=== PATIENT | female | born 1960 | race Caucasian/White ===

== ENCOUNTER 2022-04-21 10:47 | Outpatient (REF) | payer OTHER, SELFPAY | END 2022-04-21 10:48 | disposition home or self-care (01) | LOC: HO.XRAY 10:47 | PROVIDERS: PCP Internal Medicine; Visit Provider Internal Medicine | DX: K21.9 Gastro-esophageal reflux disease without esophagitis (principal); R10.13 Epigastric pain | CPT/HCPCS: 74220 ==

== ENCOUNTER 2022-05-25 07:44 | Outpatient (REF) | payer OTHER, SELFPAY ==
--- NOTE | ~2022-05-25 | US_ITS ---
EXAMINATION: US ABDOMEN COMPLETE CLINICAL INFORMATION: Abdominal discomfort. COMPARISON: None TECHNIQUE: Real-time imaging of the abdominal viscera. FINDINGS: PANCREAS: Normal. ABDOMINAL AORTA: The proximal, mid, and distal segments are normal in caliber. INFERIOR VENA CAVA: Visualized portions are normal. LIVER: The liver is normal in size. The liver contour is normal. There is diffuse increased liver parenchymal echogenicity, consistent with hepatic steatosis. No focal hepatic lesion. There is no intrahepatic biliary duct dilatation seen. GALLBLADDER: Normal. The gallbladder is physiologically distended without evidence of stones, sludge, polyps, wall thickening or pericholecystic fluid. COMMON BILE DUCT: Normal in caliber measuring 0.7 cm in diameter. RIGHT KIDNEY: Normal. No hydronephrosis. No renal calculi or focal parenchymal lesions. The kidney measures 10.5 cm in maximum dimension. LEFT KIDNEY: Nonobstructing 3 mm stone. No hydronephrosis or focal parenchymal lesions. The kidney measures 10.2 cm in maximum dimension. SPLEEN: Normal. The spleen measures 8.3 cm in maximum dimension. FREE FLUID: None. US/US abdomen complete IMPRESSION: 1. Hepatic steatosis. 2. Nonobstructing left renal nephrolithiasis.
== END 2022-05-25 07:45 | disposition home or self-care (01) ==
LOC: HO.US 07:44
PROVIDERS: Visit Provider Internal Medicine
DX: R10.84 Generalized abdominal pain (principal)
CPT/HCPCS: 76700

== ENCOUNTER 2022-06-05 10:14 | Day surgery (SDC) | payer OTHER, SELFPAY ==
--- NOTE | 2022-06-02 13:56 | P.CONAN_ITS ---
Documented by User: Marcella Munguia NP 06/02/22 13:58 HPI - Anesthesia Eval Consult details Narrative: 62yo F for Upper Endoscopy with Balloon Dilitation and Colonoscopy [facility] Past Medical History Medical History (Updated 06/02/22 @ 13:57 by Marcella Munguia NP) GERD (gastroesophageal reflux disease) Hiatal hernia HLD (hyperlipidemia) Hypothyroid IBS (irritable bowel syndrome) Social History Social History Advance Directives: No Advance Directives Information Provided: Yes Meds Allergies Allergy/AdvReac Type Severity Reaction Status Date / Time No Known Allergies Allergy Verified 06/02/22 13:58 Home Medications Medication Instructions Recorded Confirmed Last Taken Type dicyclomine 20 mg tablet 1 tab PO TID 06/02/22 06/02/22 Unknown History levothyroxine 75 mcg tablet 1 tab PO DAILY 06/02/22 06/02/22 Unknown History omeprazole 40 mg capsule,delayed 1 cap PO DAILY 06/02/22 06/02/22 Unknown History release pravastatin 80 mg tablet 1 tab PO DAILY 06/02/22 06/02/22 Unknown History Exam Exam Date and Time: June 02, 2022 1356 Assessment and Plan Assessment Anesthesia Assessment: Chart Reviewed Documented by User: Cristhian Sauceda MD 06/05/22 11:12 [facility] Past Medical History Medical History (Updated 06/02/22 @ 13:57 by Marcella Munguia NP) GERD (gastroesophageal reflux disease) Hiatal hernia HLD (hyperlipidemia) Hypothyroid IBS (irritable bowel syndrome) Family History Family history of problems with anesthesia: No Surgical History History of Problems with Anesthesia: No Social History Social History Advance Directives: No Advance Directives Information Provided: Yes Meds Allergies Allergy/AdvReac Type Severity Reaction Status Date / Time No Known Allergies Allergy Verified 06/02/22 13:58 Home Medications Medication Instructions Recorded Confirmed Last Taken Type dicyclomine 20 mg tablet 1 tab PO TID 06/02/22 06/02/22 Unknown History levothyroxine 75 mcg tablet 1 tab PO DAILY 06/02/22 06/02/22 Unknown History omeprazole 40 mg capsule,delayed 1 cap PO DAILY 06/02/22 06/02/22 Unknown History release pravastatin 80 mg tablet 1 tab PO DAILY 06/02/22 06/02/22 Unknown History Exam Airway Mallampati Class: II TM Dist: >3cm Neck ROM: Full Assessment and Plan Assessment Anesthesia Assessment: Anesthesia Plan Discussed Final Anesthetic Review Family History of Problems with Anesthesia: No History of Problems with Anesthesia: No NPO: Yes ASA Class: II Final Preanesthetic Review: No Changes in Pt Med Stat, Meds/Allgs Chart Reviewed, Consent Obtained/Reviewed and Anes Risks/Benef Reviewed Patient Risk: Low Procedure Risk: Low Anesthetic Plan Anesthetic Plan: MAC: Disposition: Standard PACU
[2022-06-05 11:12] VITALS: BP 134/70; PULSE 73; RESP 18; TEMP 36.3; O2SAT 98
[2022-06-05 11:16] VITALS: BMI 25.6
[2022-06-05] MEDS: Lactated Ringers 1,000 ML 100 ML IVCONT (11:24)
[2022-06-05 12:50] VITALS: BP 86/57; PULSE 69; RESP 16; TEMP 36.1; O2SAT 98
--- NOTE | 2022-06-05 13:00 | P.BOP_ITS ---
Brief Operative Note Date of Service: 06/05/22 Pre-op diagnosis: GERD, Diarrhea Post-op diagnosis: other (Hiatal hernia, Gastritis, R/O microscopic colitis) Procedure: EGD with biopsies, Colonoscopy to the cecum and TI with biopsies Surgeon: Chris Benoit Anesthesia: MAC Was an Asp Net Mvc Developer used for this Procedure?: No Estimated blood loss (mL): 3.0 Pathology: other (A. Descending duodenum B. Hiatal hernia C. EG Junction at 30cm D. Ascending colon E. Descending colon) Condition: stable Disposition: PACU
[2022-06-05 13:05] VITALS: BP 106/64; PULSE 53; RESP 16; O2SAT 98
--- NOTE | 2022-06-05 23:15 | OP_ITS ---
SURGEON: Chris Benoit MD INDICATIONS: The patient presents for evaluation of chronic gastroesophageal reflux, abdominal discomfort, irregular bowel movements, and colorectal cancer screening. Full consent has been obtained from her for this, including risks of bleeding and perforation. PREOPERATIVE DIAGNOSIS: POSTOPERATIVE DIAGNOSIS: PROCEDURE PERFORMED: Esophagogastroduodenoscopy with biopsies and colonoscopy to the cecum and terminal ileum with biopsies. ESTIMATED BLOOD LOSS: COMPLICATIONS: ANESTHESIA: Monitored anesthesia care. ASSISTANTS: SPECIMENS: PREOPERATIVE DIAGNOSES: Gastroesophageal reflux, abdominal discomfort, irregular bowel movements, colorectal cancer screening. POSTOPERATIVE DIAGNOSES: Gastroesophageal reflux, abdominal discomfort, irregular bowel movements, colorectal cancer screening, rule out celiac disease, rule out gastritis, hiatal hernia, rule out microscopic colitis, diverticulosis, and internal hemorrhoids. DESCRIPTION OF PROCEDURE: The patient was placed in the left lateral decubitus position. The Olympus video gastroscope was passed in the posterior oropharynx and upper esophagus under direct vision. The scope was passed slowly to the distal esophagus. The gastroesophageal junction appeared at 30 cm. There was some slight irregularity consistent with chronic reflux and possibly small areas of Moctezuma's mucosa. There was no esophagitis. There was no sign of any stricture. The scope easily entered into the stomach. There was a moderate-sized hiatal hernia with associated gastritis. The scope was advanced to the pylorus and the duodenum was cannulated to the descending portion. The duodenum including the bulb appeared normal without mass or ulceration. Biopsies were obtained from the 2nd and 3rd portions of duodenum. The scope was withdrawn back into the stomach. The gastric antrum and body appeared normal with good peristalsis. The scope was retroflexed visualizing the proximal stomach carefully which appeared normal, without any sign of mass or ulceration. The scope was straightened and withdrawn back into the hiatal hernia. Biopsies were obtained from the hiatal hernia mucosa. The scope was withdrawn back into the esophagus. Biopsies were obtained at the EG junction at 30 cm. Proximal to this, the esophageal mucosa appeared normal. I did not perform any balloon dilation of the gastroesophageal junction given its gross appearance and the fact that she reports that she has not been having any trouble swallowing recently. The scope was withdrawn from the patient. She was turned around for the colonoscopy. The digital rectal exam revealed no abnormalities. The Olympus video pediatric colonoscope was entered into the rectum and advanced easily to the cecum. Once in the cecum, I did identify normal-appearing cecal pouch with appendiceal orifice and a normal-appearing ileocecal valve. The terminal ileum was cannulated and appeared normal. The scope was withdrawn back in the colon. The entire cecum and ileocecal valve appeared normal. The scope was then slowly withdrawn assessing all mucosal surfaces carefully. Preparation was excellent. I did not visualize any sign of polyps, colitis, nor angiodysplasia. Random biopsies were obtained in the ascending and descending colon. There was a mild amount of sigmoid diverticulosis. In the rectum, the scope was retroflexed visualizing small internal hemorrhoids, but no other pathology. The rectal mucosa appeared normal. Scope was straightened and withdrawn from the patient. She tolerated both procedures well and was returned to recovery area in stable condition. IMPRESSION: 1. Hiatal hernia with associated gastritis. 2. Rule out celiac disease. 3. Gastroesophageal reflux. 4. Rule out microscopic colitis. 5. Diverticulosis. 6. Internal hemorrhoids. PLAN: The results of the biopsies will be checked. She continues to have symptomatic reflux on omeprazole 20 mg daily. I shall give her a prescription to use omeprazole 40 mg daily to see if that gives her any improvement. We may need to consider hiatal hernia surgery if her symptoms persist. The recent barium swallow did describe a possible small paraesophageal hernia, but she denies any dysphagia at this time. A recent abdominal ultrasound was also negative for gallstones. I would recommend a repeat colonoscopy in 10 years for further screening given today's negative colonoscopy. She will be seen in 2-3 months for a followup visit as well. MD ALENA Brandt/LUCAS / [id number] MTDD
== END 2022-06-05 14:05 | disposition home or self-care (01) ==
PROVIDERS: PCP Internal Medicine; Visit Provider Internal Medicine
PROC: (CPT 45380; principal; 2022-06-05 12:20)
DX: Z12.11 Encounter for screening for malignant neoplasm of colon (principal); K57.30 Diverticulosis of large intestine without perforation or abscess without bleeding; K64.8 Other hemorrhoids; K58.0 Irritable bowel syndrome with diarrhea; K21.9 Gastro-esophageal reflux disease without esophagitis; R13.10 Dysphagia, unspecified; K29.50 Unspecified chronic gastritis without bleeding; K44.9 Diaphragmatic hernia without obstruction or gangrene; Z79.899 Other long term (current) drug therapy
CPT/HCPCS: 45380; 43239; 88305; 88342

== ENCOUNTER → 2024-05-12 12:25 | Day surgery (SDC) | payer OTHER, SELFPAY ==
[2024-05-08 14:43] VITALS: BMI 25.8
[2024-05-12 13:44] VITALS: BMI 25.6
[2024-05-12] MEDS: Lactated Ringers 1,000 ML 80 ML IVCONT (13:50)
[2024-05-12 13:57] VITALS: BP 117/88; PULSE 56; RESP 18; TEMP 36.7; O2SAT 97
--- NOTE | 2024-05-12 15:26 | PC.NURSE ---
report given to kenia tolbert rn at this time.
--- NOTE | 2024-05-12 15:55 | HO.ANESPROP2 ---
HPI - Anesthesia Eval Consult details Narrative: For EGD. REPLACED BY [facility] Past Medical History Medical History HLD (hyperlipidemia) Hypothyroid IBS (irritable bowel syndrome) Hiatal hernia GERD (gastroesophageal reflux disease) Family History Family history of problems with anesthesia: No Surgical History Surgical History History of back surgery History of esophagogastroduodenoscopy (EGD) H/O colonoscopy History of Problems with Anesthesia: No Social History Social History (Updated 05/08/24 @ 14:44 by Traci Lopez RN) Do you presently have visiting nurse or other home services: No Patient Tobacco Use Status: Former Tobacco user Have you been hit, kicked, punched, or otherwise hurt by someone within the past year? If so, by whom?: No Are you DNR?: No Advance Directives: No Advance Directives Information Provided: Yes Recently lost weight without trying: No Nutrition Risks: No Nutritional Risk Meds Allergies Allergy/AdvReac Type Severity Reaction Status Date / Time No Known Allergies Allergy Verified 05/12/24 13:46 Active Medications: Current Medications Lactated Ringer's (Lr) 1,000 mls @ 80 mls/hr IVCONT .[id number] [facility] Last Admin: 05/12/24 13:50 Dose: 80 mls/hr Home Medications ?Medication ?Instructions ?Recorded ?Confirmed ?Last Taken ?Type levothyroxine 75 mcg tablet 1 tab PO DAILY 06/02/22 05/08/24 05/12/24 History omeprazole 40 mg capsule,delayed 1 cap PO DAILY 06/02/22 05/08/24 Unknown History release pravastatin 80 mg tablet 1 tab PO DAILY 06/02/22 05/08/24 Unknown History multivitamin with folic acid 400 1 tab PO DAILY 05/08/24 05/08/24 Unknown History mcg tablet (Daily-Bud (with folic acid)) Exam Height,Weight and Vital Signs: Height 5 ft 2 in Weight 63.503 kg Last Vital Signs Temp 98.1 F 05/12/24 13:57 Pulse 56 05/12/24 13:57 Resp 18 05/12/24 13:57 BP 117/88 05/12/24 13:57 Pulse Ox 97 05/12/24 13:57 O2 Del Method Room Air 05/12/24 13:57 Airway Mallampati Class: I TM Dist: <=3cm Neck ROM: Full Loose/Missing/Broken Teeth: No Heart: ok Lungs: ok Assessment and Plan Assessment Anesthesia Assessment: Anesthesia Plan Discussed and Chart Reviewed Final Anesthetic Review Family History of Problems with Anesthesia: No History of Problems with Anesthesia: No NPO: Yes ASA Class: II Final Preanesthetic Review: No Changes in Pt Med Stat, Meds/Allgs Chart Reviewed, Consent Obtained/Reviewed and Anes Risks/Benef Reviewed Patient Risk: Low Procedure Risk: Intermediate Anesthetic Plan Anesthetic Plan: Agree w/ Assess. and Plan and TIVA Disposition: Standard PACU
[2024-05-12 16:31] VITALS: BP 89/58; PULSE 82; RESP 18; TEMP 36.2; O2SAT 96
--- NOTE | 2024-05-12 16:39 | P.BOP_ITS ---
Brief Operative Note Date of Service: 05/12/24 Pre-op diagnosis: GERD Post-op diagnosis: other (Gastritis, Hiatal hernia) Procedure: EGD with biopsies Surgeon: Chris Benoit MD Anesthesia: MAC Was an Clerk Of Scales used for this Procedure?: No Estimated blood loss (mL): 2.0 Pathology: other (A. Hiatal hernia B. EG Junction at 32cm) Condition: stable Disposition: PACU
[2024-05-12 16:46] VITALS: BP 127/80; PULSE 64; RESP 18; TEMP 36.7; O2SAT 96
--- NOTE | 2024-05-13 03:18 | OP_ITS ---
DATE OF SERVICE: 05/12/2024 SURGEON: Chris Benoit MD INDICATIONS: The patient presents for evaluation of chronic gastroesophageal reflux and hiatal hernia. Full consent has been obtained from her for this, including risks of bleeding and perforation. PREOPERATIVE DIAGNOSIS: POSTOPERATIVE DIAGNOSIS: PROCEDURE PERFORMED: Esophagogastroduodenoscopy with biopsies. ESTIMATED BLOOD LOSS: COMPLICATIONS: ANESTHESIA: Monitored anesthesia care. ASSISTANTS: SPECIMENS: PREOPERATIVE DIAGNOSES: Gastroesophageal reflux and hiatal hernia. POSTOPERATIVE DIAGNOSES: Gastroesophageal reflux and hiatal hernia. Gastritis within the hiatal hernia, rule out Moctezuma esophagus. DESCRIPTION OF PROCEDURE: The patient was placed in the left lateral decubitus position. The Olympus video gastroscope was passed in the posterior oropharynx and upper esophagus under direct vision. The scope was passed slowly into the distal esophagus. The gastroesophageal junction appeared at 32 cm. There was some slight irregularity consistent with reflux, but no evidence of esophagitis nor any definitive Moctezuma esophagus. The scope was entered into the stomach. There was a moderate-sized hiatal hernia with associated gastritis and a small amount of coffee-grounds material. There were no ulcerations nor mass. The scope was advanced to pylorus and the duodenum was cannulated to the descending portion. The duodenum including the bulb appeared normal without mass or ulceration. The scope was withdrawn back into the stomach where the gastric antrum and body appeared normal with good peristalsis. The scope was retroflexed visualizing the proximal stomach carefully, which showed evidence of the gastritis with linear erosions. There was no mass or ulceration. The scope was straightened. Within the hiatal hernia, there was the linear erosion consistent with probable Jeremy erosions. There was no ulceration or mass. Multiple biopsies were obtained from the hiatal hernia mucosa. I also obtained biopsies from the EG junction at 32 cm. Proximal to this, the esophageal mucosa appeared normal. Scope was withdrawn from the patient. She tolerated the procedure well and was returned to the recovery area in stable condition. IMPRESSION: 1. Hiatal hernia with associated gastritis. 2. Rule out Moctezuma esophagus. PLAN: The results of the biopsies will be checked. She will continue her pantoprazole either once or twice a day for symptomatic relief of reflux. She has been advised not to use any aspirin, nor NSAIDs long-term given the findings. She is scheduled for esophageal motility studies in June and will be seeing Dr. Sebastian to discuss possible laparoscopic hiatal hernia repair in July. She will see me in the spring for followup as well. MD ALENA Brandt/LUCAS / [phone]
== END | disposition home or self-care (01) ==
PROVIDERS: PCP Internal Medicine; Visit Provider Internal Medicine
PROC: 0DJ08ZZ Inspection of Upper Intestinal Tract, Via Natural or Artificial Opening Endoscopic (ICD-10-PCS; CPT 43235; principal; 2024-05-12 15:10)
DX: K21.9 Gastro-esophageal reflux disease without esophagitis (principal); K44.9 Diaphragmatic hernia without obstruction or gangrene; K29.60 Other gastritis without bleeding; K58.9 Irritable bowel syndrome, unspecified; E03.9 Hypothyroidism, unspecified; E78.5 Hyperlipidemia, unspecified; Z79.899 Other long term (current) drug therapy; Z98.890 Other specified postprocedural states
CPT/HCPCS: 43239; 88305; 88313; 88342; J2003; J2704

== ENCOUNTER 2024-10-20 14:42 | Outpatient (REF) | payer OTHER, SELFPAY ==
[2024-10-20 16:38] LABS: Estimated Average Glucose 131 mg/dL; Hemoglobin A1C 155.4228 umol/L; Hemoglobin A1c % 6.2 % (<6.0); Total Hemoglobin (HGBA1C) 3539.2051 umol/L
--- OUTSIDE RECORDS SUMMARY | 2024-10-20 17:37 | XMS_ITS | Patient Health Record ---
Author Organization [facility] Address [address] [place] [address] Care Team Providers Care Floating Operator Name Role Phone Imeldashelli Tere Primary Care Provider Unavailab Chris Napoles [phone] Allergies No Known Allergies Results Component Value Reference Range Notes Pathology Reviewed date:05/19/2024 06:55:01 PM Interpretation: Performing Lab:[facility], [address] [place] [address] Notes/Report: Name: Nayeli Velasquez Age/Sex: 64/F : 1960 Unit#: [id number] Attend Dr: Chris Benoit MD Re05/12/24 Status : [place] [facility] [place]: [facility] Disch: SPEC : [id number] RECD : 05/13/24 STATUS: TONI URBANO NUM: [id number] MARLINE: 05/12/[address] [facility] [address]: Chris Benoit MD ENTERED: 05/13/24 35 SP TYPE: Surgical OTHR DR: Tere Jones MD ORDERED: HE Stain/6, Gross Micro L4/2, IHC, Special st. 2/2, H. pylori, AB/PAS/2 Diagnosis A. Hiatal hernia, bi opsy: Oxyntic mucosa with moderate chronic, focally active, inflammation and foc al erosion; no Helicobacter organisms seen. B. EG junction, 32 cm, biopsy: - Cardiofundic-type mucosa with mild chronic inactive inflammation; no intestinal metaplasia seen. - Squamous mucosa wi thin normal limits. Clinical History Pre-Op Dx: Gastro-es ophageal reflux disease without esophagitis Post-Op Dx: Hiatal h ernia, gastritis, reflux Microscopic Description A, B. Microscopic se ctions examined. No metaplastic changes are seen, supported by AB/PAS stains (A and B); no Helicobacter organisms are seen, supported by H. pylori immunostain (A). Material Received A. Hiatal hernia bx B. EG junction at 32 bx Gross Description Received in 2 parts. A. Received in forma jude labeled ?hiatal hernia biopsy? are 5 fragments of pittman-white soft tissue measuring 0.3 - 0.4 cm in greatest dimension which are wrapped in lens paper and entirely submitted f or microscopic examination, 5 pieces in cassette A. B. Received in forma jude labeled ?EG junction at 32 biopsy? are 2 fragments of pittman-white soft tissue measuring 0.2 and 0.3 cm in greatest dimension which are wrapped in lens paper and entirely submitted f or microscopic examination, 2 pieces in cassette B. [facility] Special studies orde red and performed: Immunostain for H. pylori on A; AB/PAS stains on A and B CONTINUED ON NEXT PAGE Name: Nayeli Velasquez Age/Sex: 64/F : 1960 Unit#: [id number] Attend Dr: Chris Benoit MD Re05/12/24 Status : [place] [facility] [place] Location: [facility] Disch: SPEC : [id number] RECD : 05/13/24 STATUS: TONI URBANO NUM: [id number] MARLINE: 05/12/24-[address] [facility] [address]: Chris Benoit MD ENTERED: 05/13/24- 35 SP TYPE: Surgical OTHR DR: Tere Jones MD ORDERED: HE Stain/6, Gross Micro L4/2, IHC, Special st. 2/2, H. pylori, AB/PAS/2 Copies To: Tere Jones MD [facility] [address] [place] [address] Drive [address] [place] [address] Chris Benoit MD [facility] [address] [place] [address] Signed (si gnature on file) Nitish Stanford MD 05/15/24 1014 END OF REPORT Reason For Referral No Information Medications Medication SIG (Take, Route, Frequency, Duration) Notes Start Date End Date Status Omeprazole 40 MG TAKE 1 CAPSULE BY [facility] TWICE A DAY Orally Twice a day Active Pantoprazole Sodium 40 MG 1 tablet Orall y Once a day for 30 day(s) 04/16/2024 Active MiraLax 17 GM/SCOOP 1 scoop mixed with 8 ounces of fluid Orally Once or Twice a day for constipation a day for 30 day(s) 04/16/2024 Active Metamucil 0.36 GM 2 with at least 8 ou nces of water Orally Once or Twice a day for constipation for 30 days 04/16/2024 Active Levothyroxine Sodium 75 MCG Oral for 90 Active Pravastatin Sodium 80 MG Oral for 90 Active Immunizations Vaccine Route Administration Date Status Comme nts Influenza Unknown 04/18/2022 Refused Influenza Unknown 04/16/2024 Refused Social History Tobacco Use: Social History Observation Description Date Details (start date - stop date) Never Smoker NA - NA Tobacco Use/Smoking Question Answer Notes Patient is a nonsmoker Alcohol Screen Question Answer Notes Did you have a drink containing alcohol in the p ast year? No Points 0 Interpretation Negative Section Notes: She does not smoke or use an y significant amounts of alcohol. She does not use much in the way of any dairy products nor caffeine. She does not smoke or use an y significant amounts of alcohol. She does not use much in the way of any dairy products nor caffeine. She does not smoke or use an y significant amounts of alcohol. She does not use much in the way of any dairy products nor caffeine. Problems Problem Type SNOMED Code ICD Code Onset Dates Problem Status W/U Status Risk Notes Problem Colon cancer screening (365750243) Colon cancer screening (Z12.11) Active confirmed Problem Gastro-esophageal reflux disease without esophagitis (014629913) Gastro-esophageal reflux disease without esophagitis (K21.9) Active confirmed Problem Dysphagia (08210736) Dysphagia (R13.10) Active confirmed Problem 882330662 Gastroesophageal reflux disease without esophagitis (K21.9) Active confirmed Problem Hiatal hernia (13256951) Hiatal hernia (K44.9) Active confirmed Problem 02980801 Constipation, unspecified constipation type (K59.00) Active confirmed Problem Gastritis (1495086) Gastritis (K29.70) Active c onfirmed Problem Gastroesophageal reflux disease (890865682) GERD (gastroesophageal reflux disease) (K21.9) Active confirmed Problem Chronic gastritis (1491172) Chronic gastritis (K29.50) Active confirmed Problem Irritable bowel syndrome (56234979) Irritable bowel syndrome with both constipation and diarrhea (K58.0) Active confirmed Problem Diverticulosis of sigmoid colon (294349209) Diverticulosis of sigmoid colon (K57.30) Active confirmed Problem Generalized abdominal pain (185348187) Abdominal discomfort, generalized (R10.84) Active confirmed Problem Gastroesophageal reflux disease (233475482) Gastroesophageal reflux disease, unspecified whether esophagitis present (K21.9) Active confirmed Vital Signs Temperature 97.3 degrees Fahrenheit 04/16/2024 Blood pressure diastolic 00 mm Hg 04/16/2024 Height 62 in 04/16/2024 Blood pressure systolic 000 mm Hg 04/16/2024 Weight 141 lb 6 oz lbs 04/16/2024 BMI 25.86 kg/m2 04/16/2024 Encounters Encounter Location Date Provider Diagnosis [facility] [place] [address] [place] [phone] 05/12/2024 Chris Benoit Gastro-esophageal reflux disease without esophagitis K21.9 ; Chronic gastritis K29.50 and Hiatal hernia K44.9 [facility] [address] [place] [phone] 04/16/2024 Chris Benoit GERD (gastroesophage al reflux disease) K21.9 ; Hiatal hernia K44.9 and Constipation, unspecified constipation type K59.00 [facility] [address] [place] [phone] 04/16/2024 Chris Benoit [facility] [address] [place] [phone] 04/16/2024 Chris Macdonald [facility] [address] [place] [address] 04/21/2024 Chris Macdonald [facility] [address] [place] [address] 05/19/2024 Chris Benoit Assessments Encounter Date Diagnosis (ICD Code) Assessment Notes Treatment Notes Treatment Clinical Notes Section Notes 05/12/2024 Gastro-esophagea l reflux disease without esophagitis (ICD-10 - K21.9) 05/12/2024 Chronic gastritis (ICD-10 - K29.50) 04/16/2024 Hiatal hernia (ICD-10 - K44.9) Needs appointment with Dr. Sebastian for possible hiatal hernia surgery Overall, Nayeli appears well. Her reflux does seem to be more problematic lately despite the high dose of omeprazole. We did review that her moderate-sized hiatal hernia along with some dietary indiscretion would certainly be contributing to this issue. While she is having some increasing symptoms of reflux she is not having any worrisome symptoms such as dysphagia or anorexia. We did review that she should continue her PPI but does need to be careful in regard to the types of food and the amounts of food, as well as trying to avoid eating close to bedtime. She did ask me about getting a prescription for pantoprazole since that did seem to work better for her when she borrowed some from her relative. I will send a prescription over to her pharmacy although I did advise her that her insurance may or may not cover that. We again had a detailed discussion today regarding her hiatal hernia and potential surgical repair of that. As such, I did recommend she have a consultation with Dr. Sebastian about potential surgical options for the hiatal hernia. I will also schedule her for an esophageal motility study which she would need preoperatively. Of note, she did have this done back in 2017 and it was normal, but I do think it would be reasonable to repeat that since it has now been 7 years. Given her worsening symptoms and consideration of possible hiatal hernia surgery, I did recommend a followup upper endoscopy for further evaluation as well. Full consent is obtained for this, including risks of bleeding and perforation. The procedure will be done with monitored anesthesia care. Depending upon the results of the endoscopy and her clinical course, I may want to repeat a barium swallow to reassess the small paraesophageal hernia that had been described on her previous study 2021. Certainly if the paraesophageal hernia seemed to be enlarging then that would be another reason to strongly consider surgery. Lastly, we did review that her constipation could be playing some role in her GI symptoms as well. As I did last year, I did recommend that she start a regimen of MiraLax and/or Metamucil on a daily basis with plenty of fluids. At this point I will plan to see Nayeli for her upper endoscopy, but I did advise her to contact me prior to that if she has any problems or questions I can be of assistance with. Nayeli was comfortable with this plan. Thank you again for allowing me to participate in Nayeli's care. I shall continue to keep you advised of her progress. 04/16/2024 GERD (gastroesophagea l reflux disease) (ICD-10 - K21.9) Overall, Nayeli appears well. Her reflux does seem to be more problematic lately despite the high dose of omeprazole. We did review that her moderate-sized hiatal hernia along with some dietary indiscretion would certainly be contributing to this issue. While she is having some increasing symptoms of reflux she is not having any worrisome symptoms such as dysphagia or anorexia. We did review that she should continue her PPI but does need to be careful in regard to the types of food and the amounts of food, as well as trying to avoid eating close to bedtime. She did ask me about getting a prescription for pantoprazole since that did seem to work better for her when she borrowed some from her relative. I will send a prescription over to her pharmacy although I did advise her that her insurance may or may not cover that. We again had a detailed discussion today regarding her hiatal hernia and potential surgical repair of that. As such, I did recommend she have a consultation with Dr. Sebastian about potential surgical options for the hiatal hernia. I will also schedule her for an esophageal motility study which she would need preoperatively. Of note, she did have this done back in 2017 and it was normal, but I do think it would be reasonable to repeat that since it has now been 7 years. Given her worsening symptoms and consideration of possible hiatal hernia surgery, I did recommend a followup upper endoscopy for further evaluation as well. Full consent is obtained for this, including risks of bleeding and perforation. The procedure will be done with monitored anesthesia care. Depending upon the results of the endoscopy and her clinical course, I may want to repeat a barium swallow to reassess the small paraesophageal hernia that had been described on her previous study 2021. Certainly if the paraesophageal hernia seemed to be enlarging then that would be another reason to strongly consider surgery. Lastly, we did review that her constipation could be playing some role in her GI symptoms as well. As I did last year, I did recommend that she start a regimen of MiraLax and/or Metamucil on a daily basis with plenty of fluids. At this point I will plan to see Nayeli for her upper endoscopy, but I did advise her to contact me prior to that if she has any problems or questions I can be of assistance with. Nayeli was comfortable with this plan. Thank you again for allowing me to participate in Nayeli's care. I shall continue to keep you advised of her progress. 05/12/2024 Hiatal hernia (ICD-10 - K44.9) 04/16/2024 Constipation, unspecified constipation type (ICD-10 - K59.00) Start 1 dose of Miralax once or twice a day and 2 Metamucil fiber pills with a lot of water every day Overall, Nayeli appears well. Her reflux does seem to be more problematic lately despite the high dose of omeprazole. We did review that her moderate-sized hiatal hernia along with some dietary indiscretion would certainly be contributing to this issue. While she is having some increasing symptoms of reflux she is not having any worrisome symptoms such as dysphagia or anorexia. We did review that she should continue her PPI but does need to be careful in regard to the types of food and the amounts of food, as well as trying to avoid eating close to bedtime. She did ask me about getting a prescription for pantoprazole since that did seem to work better for her when she borrowed some from her relative. I will send a prescription over to her pharmacy although I did advise her that her insurance may or may not cover that. We again had a detailed discussion today regarding her hiatal hernia and potential surgical repair of that. As such, I did recommend she have a consultation with Dr. Sebastian about potential surgical options for the hiatal hernia. I will also schedule her for an esophageal motility study which she would need preoperatively. Of note, she did have this done back in 2017 and it was normal, but I do think it would be reasonable to repeat that since it has now been 7 years. Given her worsening symptoms and consideration of possible hiatal hernia surgery, I did recommend a followup upper endoscopy for further evaluation as well. Full consent is obtained for this, including risks of bleeding and perforation. The procedure will be done with monitored anesthesia care. Depending upon the results of the endoscopy and her clinical course, I may want to repeat a barium swallow to reassess the small paraesophageal hernia that had been described on her previous study 2021. Certainly if the paraesophageal hernia seemed to be enlarging then that would be another reason to strongly consider surgery. Lastly, we did review that her constipation could be playing some role in her GI symptoms as well. As I did last year, I did recommend that she start a regimen of MiraLax and/or Metamucil on a daily basis with plenty of fluids. At this point I will plan to see Nayeli for her upper endoscopy, but I did advise her to contact me prior to that if she has any problems or questions I can be of assistance with. Nayeli was comfortable with this plan. Thank you again for allowing me to participate in Nayeli's care. I shall continue to keep you advised of her progress. Plan Of Treatment Pending Test Test Name Order Date Esophageal Motility study 04/16/2024 XR BARIUM SWALLOW-ESOPHAGUS 04/18/2022 US ABD 04/18/2022 Future Test Test Name Order Date UPPER GI ENDOSCOPY BALLOOON DILATION OF ESOPH 04/18/2022 COLONOSCOPY 04/18/2022 UPPER GI ENDOSCOPY 04/16/2024 Next Appt Details Provider Name:Chris Nguyen Cy , 10/21/2024 09:30:00 AM, [address] [place] [address], [address], [place], [address], Insurance Providers Payer Name Payer Address Payer Phone Subscriber Number Group Number Insured Name Patient Relationship to Insured Coverage Start Date Coverage End Date [facility] [address] [place] [address] [phone] [id number] NAYELI VELASQUEZ Self - patient is the insured MEDICAID OF [facility] [address] [place] [address] [phone] [id number] NAYELI VELASQUEZ Self - patient is the insured Medical (General) History Medical History History ICD Code Denies NE,DM,CVA,Lung disease,renal dise ase GERD-hiatal hernia-EGD [address] Dickson-large HH, tortuous esophagus--normal esophageal motility study IBS--constipation as of the 02/2023 offic e visit Negative screening colonoscopy in 2008 w ith me Hypothyroidism Hyperlipidemia Negative screening colonosco py in May of 2022. This was negative for polyps, inflammatory bowel disease, and biopsies were negative for any underlying microscopic colitis Upper endoscopy in May of 2022. This revealed a moderate size hiatal hernia, but no evidence of any significant esophagitis nor Moctezuma's esophagus. Duodenal biopsies were negative for celiac disease and biopsies from the gastric mucosa in the hiatal hernia were negative for H. pylori. Negative abdominal ultrasoun d in May of 2022 other than a kidney stone and fatty liver. There were no gallstones. Barium swallow in May 04 describes a small paraesophageal hiatal hernia but is described as otherwise unremarkable.. Surgical History Surgery Date(Month/Year) Scoliosis - ana m in back 1977
--- OUTSIDE RECORDS SUMMARY | 2024-10-20 17:37 | XMS_ITS | Encounter Summary ---
Author Organization [facility] Address [address] [place] [address] Care Team Providers Care Home Care Specialist Name Role Phone Tere Jones MD Primary Care Provider [phone] Encounter Details Date Type Department Care Team ([facility] st Contact Info) Description 05/29/2024 Lab Requisition [facility] [address] [place] [phone] Nitish Velasco MD [address] [facility] [address] [place] [phone] Acute vaginitis Social History Tobacco Use Types Packs/Day Years Used Date Smoking Tobacco: Former Smokeless Tobacco: Never Alcohol Use Standard Drinks/Week Comments No 0 (1 standard drink = 0.6 oz pur e alcohol) Comments Unknown Sex and Gender Information Value Date Recorded Sex Assigned at Not on file Legal Sex Female 4:39 PM EST Gender Identity Not on file Sexual Orientation Not on file documented as of this encounter Plan of Treatment Not on file documented as of this encounter Procedures Procedure Name Priority Date/Time Associated Diagnosis Comments VAGINITIS PATHOGENS BY PCR Routine 05/29/2024 12:00 AM EST Acute vaginitis documented in this encounter Results * Vaginitis pathogens molecular study (05/29/2024 12:00 AM EST) Trichomonas vaginalis Negative Negative 05/30/2024 11:09 AM EST [facility] Gardnerella vaginalis Negative Negative 05/30/2024 11:09 AM EST [facility] Kelin Species Negative Negative 11:09 AM EST [facility] Swab Vaginal structure / Unknown 05/29/2024 05/29/2024 6:07 PM EST us Nitish Velasco MD LAB MICROBIOLOGY - GENERAL ORD ERABLES Final Result [facility] [address] [place] [address], documented in this encounter Visit Diagnoses Diagnosis Acute vaginitis Unspecified vaginitis and vulvovaginitis documented in this encounter Care Teams Home Care Specialist Relationship Specialty Start Date End Date Tere Jones MD [address] [facility] [address] [place], [place] PCP - General Internal Medicine 07/14/20 documented as of this encounter
--- OUTSIDE RECORDS SUMMARY | 2024-10-20 17:37 | XMS_ITS ---
Author Organization [facility] Address [address] [place] [address] Care Team Providers Care Writing Center Director Name Role Phone ImeldashelliTere Primary Care Provider Unavailab Chris Napoles [phone] REASON FOR VISIT 1 month f/u Problems Problem Type SNOMED Code ICD Code Onset Dates Problem Status W/U Status Risk Notes Problem Gastro-esophagea l reflux disease without esophagitis (009307880) Gastro-esophage al reflux disease without esophagitis (K21.9) Active confirmed Problem Chronic gastritis (0987766) Chronic gastritis (K29.50) Active confirmed Encounters Encounter Location Date Provider Diagnosis [facility] [place] Out[facility] [address] [place] [phone] 05/12/2024 Chris Benoit Gastro-esophageal reflux disease without esophagitis K21.9 ; Chronic gastritis K29.50 and Hiatal hernia K44.9 Assessments Encounter Date Diagnosis (ICD Code) Assessment Notes Treatment Notes Treatment Clinical Notes Section Notes 05/12/2024 Gastro-esophagea l reflux disease without esophagitis (ICD-10 - K21.9) 05/12/2024 Chronic gastritis (ICD-10 - K29.50) 05/12/2024 Hiatal hernia (ICD-10 - K44.9) Plan Of Treatment Next Appt Details Provider Name:Chris Benoit , 10/21/2024 09:30:00 AM, [address], [address], [place], [address], Progress Notes * BASHIR MOEEDOB:1959 (64 yo F)Acc No.[id number]:05/12/2024 EGD/MAC Patient:?BASHIR MOE Provider:?Chris Benoit MD :1960???Age:64 Y???Sex:Female D ate:05/12/2024 Address:[address] [place] [address] Pcp:Tere Jones Subjective: * Chief Complaints: * ???1. 1 month f/u. * Medical History:? Objective: * Vitals:? Assessment: * Assessment: 1.?Gastro-esophageal reflux disease without esophagitis - K21.9 (Primary)???2.?Chronic gastritis - K29.50???3.?Hiatal hernia - K44.9??? Plan: * Treatment: * Procedure Codes:?64884 UPPER GI ENDOSCOPY, BIOPSY * * The named appointment provid er may or may not be the originator of this progress note, and it is not deemed complete until electronically signed by the appointment provider. Sign off status: Pending * Provider:?Chris Benoit MD Date:? 024 Generated for Leslee cabrera/Irineo/Joryitting on:?10/20/2024 05:37 PM EDT
--- OUTSIDE RECORDS SUMMARY | 2024-10-20 17:37 | XMS_ITS ---
Author Organization [facility] Address [address] [place] [address] Care Team Providers Care Sound Truck Operator Name Role Phone Tere Jones Primary Care Provider Unavailab Chris Napoles [phone] REASON FOR VISIT PLEASE LOCK THE 04-16-2024 OFFICE NOTE Encounters Encounter Location Date Provider Diagnosis [facility] [address] [place] [address] 04/21/2024 Chris Benoit Plan Of Treatment Next Appt Details Provider Name:Chris Benoit , 10/21/2024 09:30:00 AM, [address], [address], [place], [address], Progress Notes * BASHIR MOEEDOB:1959 (64 yo F)Acc No.[id number]:04/21/2024 Patient:?BASHIR MOE :1960???Age:64 Y???Sex:Female Address:[address] [place] [address] [address], [place] [address] * true * Date:? Generated for Leslee cabrera/Irineo/eTransmitting on:?10/20/2024 05:37 PM EDT
--- OUTSIDE RECORDS SUMMARY | 2024-10-20 17:37 | XMS_ITS | Clinical Summary ---
Author Organization [address] Address [address] [place] [address] Phone Care Team Providers Care Architect In Training Name Role Phone Tere Ayala MD Primary Care Provider [phone] Allergies No known active allergies Encounters Date Type Department Care Team Description 09/08/2024 11:34 AM EST - 09/08/2024 1:12 PM EST Emergency [facility] Emergency [address] [place] [address] Urinary tract infection with hematuria, site unspecified (Primary Dx) Discharge Disposition: Home or Self Care from Last 3 Months Social History Tobacco Use Types Packs/Day Years Used Date Smoking Tobacco: Former Smokeless Tobacco: Never Alcohol Use Standard Drinks/Week Comments No 0 (1 standard drink = 0.6 oz pur e alcohol) Comments Unknown Sex and Gender Information Value Date Recorded Sex Assigned at Not on file Legal Sex Female 4:39 PM EST Gender Identity Not on file Sexual Orientation Not on file Obstetrics History Last Filed Vital Signs Vital Sign Reading Time Taken Comments Blood Pressure 120/75 09/08/2024 10:16 AM EST Pulse 64 09/08/2024 10:16 AM EST Temperature 36.4 ??C (97.5 ??F) 09/08/2024 10:[address] Respiratory Rate 16 09/08/2024 10:16 AM EST Oxygen Saturation 98% 09/08/2024 10:16 AM EST Inhaled Oxygen Concentration - - Weight 63.5 kg (140 lb) 09/08/2024 10:16 AM EST Height 157.5 cm (5' 2 ) 09/08/2024 10:16 AM EST Body Mass Index 25.61 09/08/2024 10:16 AM EST Plan of Treatment Health Maintenance Due Date Last Done Comments DTaP,Tdap,and Td Vaccines (1 - Tdap) 01/27/1979 Zoster Vaccines (1 of 2) 01/27/2010 Pneumococcal Vaccine: 50+ Years (2 of 2 - PCV) 03/14/2013 03/14/2012 Colorectal Cancer Screening: Colonoscopy 06/14/2022 Depression Screening 06/14/2022 HIV Screening 06/14/2022 Hepatitis C Screening 06/14/2022 Social Influencers of Health Screening 06/14/2022 COVID-19 Vaccine ( - season) 2024 Influenza Vaccine (#1) 2024 Breast Cancer Screening 02/27/2026 02/28/20, 03/29/2022, 01/02/2021, Additional history exists Cervical Cancer Screening: Pap Smear 05/29/2027 05/29/2024 Cholesterol Screening (Lipid Panel) 07/30/2029 07/30/2024 RSV Immunization Adult Patients (1 - 1-dose 75+ series) 01/27/2035 Pneumococcal Vaccine: Pediatrics (0 to 5 Years) and At-Risk Patients (6 to 64 Years) Aged Out 03/14/2012 No longer eligible based on patient's age to complete this topic HIB Vaccines Aged Out No longer eligi ble based on patient's age to complete this topic HPV Vaccines Aged Out No longer eligi ble based on patient's age to complete this topic Hepatitis A Vaccines Aged Out No long er eligible based on patient's age to complete this topic Hepatitis B Vaccines Aged Out No long er eligible based on patient's age to complete this topic IPV Vaccines Aged Out No longer eligi ble based on patient's age to complete this topic MMR Vaccines Aged Out No longer eligi ble based on patient's age to complete this topic Meningococcal ACWY Vaccine Aged Out N o longer eligible based on patient's age to complete this topic Meningococcal B Vaccine Aged Out No l onger eligible based on patient's age to complete this topic RSV Immunization Patients Under 20 months Aged Out No longer eligible based on patient's age to complete this topic Varicella Vaccines Aged Out No longer eligible based on patient's age to complete this topic Procedures Procedure Name Priority Date/Time Associated Diagnosis Comments URBINA URINE CULTURE TUBE STAT 09/08/2024 11:17 AM EST URINALYSIS WITH REFLEX MICROSCOPIC AND CULTURE STAT 09/08/2024 11:17 AM EST URINALYSIS WITH REFLEX MICROSCOPIC AND CULTURE STAT 09/08/2024 11:17 AM EST CULTURE URINE STAT 09/08/2024 11:17 AM EST CBC WITH AUTO DIFFERENTIAL STAT 09/08/2024 11:16 AM EST COMPREHENSIVE METABOLIC PANEL STAT 09/08/2024 11:16 AM EST CBC AND DIFFERENTIAL STAT 09/08/2024 11:16 AM EST CBC WITH AUTO DIFFERENTIAL Routine 07/30/2024 8:59 AM EST Myxedema heart disease Pure hypercholesterolemia Obstructive sleep apnea (adult) (pediatric) Impaired fasting glucose THYROID STIMULATING HORMONE Routine 07/30/2024 8:59 AM EST Myxedema heart disease Pure hypercholesterolemia Obstructive sleep apnea (adult) (pediatric) Impaired fasting glucose LIPID PANEL WITH REFLEX TO DIRECT LDL Routine 07/30/2024 8:59 AM EST Myxedema heart disease Pure hypercholesterolemia Obstructive sleep apnea (adult) (pediatric) Impaired fasting glucose HEMOGLOBIN A1C Routine 07/30/2024 8:59 AM EST Myxedema heart disease Pure hypercholesterolemia Obstructive sleep apnea (adult) (pediatric) Impaired fasting glucose COMPREHENSIVE METABOLIC PANEL Routine 07/30/2024 8:59 AM EST Myxedema heart disease Pure hypercholesterolemia Obstructive sleep apnea (adult) (pediatric) Impaired fasting glucose CBC AND DIFFERENTIAL Routine 07/30/2024 8:59 AM EST Myxedema heart disease Pure hypercholesterolemia Obstructive sleep apnea (adult) (pediatric) Impaired fasting glucose PAP SMEAR Routine 05/29/2024 12:00 AM EST Encounter for gynecological examination (general) (routine) without abnormal findings AGUSTO SCREENING DIGITAL Routine 02/28/2024 9:56 AM EDT Encounter for screening mammogram for malignant neoplasm of breast from Last 3 Months or Most Recently Relevant to Health Maintenance Results * (ABNORMAL) Urinalysis with reflex microscopic and culture (09/08/2024 11:17 AM EST) Specific [place] Urine 1.006 1.003 - 1.030 LAB URINALYSIS - AUTOMATED METHOD 09/08/2024 11:43 AM [facility] pH, Urine 6.5 5.0 - 8.0 pH LAB URINALYSIS - AUTOMATED METHOD 09/08/2024 11:43 AM [facility] Leukocytes, Urine Large(A) Negative LAB URINALYSIS - AUTOMATED METHOD 09/08/2024 11:43 AM [facility] Nitrite, Urine Negative Negative LAB URINALYSIS - AUTOMATED METHOD 09/08/2024 11:43 AM [facility] Protein, Urine Trace <=Trace mg/dL LAB URINALYSIS - AUTOMATED METHOD 09/08/2024 11:43 AM [facility] Glucose, Urine Negative Negative mg/dL LAB URINALYSIS - AUTOMATED METHOD 09/08/2024 11:43 AM [facility] Ketones, Urine Negative Negative mg/dL LAB URINALYSIS - AUTOMATED METHOD 09/08/2024 11:43 AM [facility] Urobilinogen, Urine 0.2 0.2 - 1.0 mg/dL LAB URINALYSIS - AUTOMATED METHOD 09/08/2024 11:43 AM [facility] Bilirubin, Urine Negative Negative LAB URINALYSIS - AUTOMATED METHOD 09/08/2024 11:43 AM [facility] Blood, Urine Large(A) Negative LAB URINALYSIS - AUTOMATED METHOD 09/08/2024 11:43 AM [facility] RBC, Urine 6.2(H) 0 - 4 /HPF LAB URINALYSIS - AUTOMATED METHOD 09/08/2024 11:43 AM [facility] WBC, Urine 469.3(H) 0 - 4 /HPF LAB URINALYSIS - AUTOMATED METHOD 09/08/2024 11:43 AM [facility] Squamous Epithelial, Urine 7 0 - 60 /LPF LAB URINALYSIS - AUTOMATED METHOD 09/08/2024 11:43 AM [facility] Bacteria, Urine Negative Negative /HPF LAB URINALYSIS - AUTOMATED METHOD 09/08/2024 11:43 AM [facility] Hyaline Casts, Urine 2.0 0 - 3 /LPF LAB URINALYSIS - AUTOMATED METHOD 09/08/2024 11:43 AM [facility] Urine Urine specimen obtained by clean catch procedure / Unknown Non-blood Collection / Unknown 09/08/2024 11:17 AM EST 09/08/2024 11:35 AM EST us Woody Cline MD LAB URINE ORDERABLES Final Res ult Performing Organization Address [facility]/ZIP Co de Phone Number [facility] [address] [place] [address], [place] [phone] * Urbina urine culture tube (09/08/2024 11:17 AM EST) Extra Tube Hold for add-ons. 09/08/2024 1:01 PM [facility] Comment:Auto resulted. Urine Urine specimen obtained by clean catch procedure / Unknown Non-blood Collection / Unknown 09/08/2024 11:17 AM EST 09/08/2024 11:35 AM EST us Woody Cline MD LAB URINE ORDERABLES Final Res ult [facility] [address] [place] [address], [place] [phone] * (ABNORMAL) Culture urine (09/08/2024 11:17 AM EST) Culture, Urine 10,000-49,000 CFU/mL Klebsiella pneumoniae ssp pneumoniae(A) KAELA 09/10/2024 11:25 AM EST [facility] Comment: This is an edited result. Previous organism was Gram negative bacilli on 09/09/2024 at 0856 EST. Urine Urine specimen obtained by clean catch procedure / Unknown Non-blood Collection / Unknown 09/08/2024 11:17 AM EST 09/08/2024 11:43 AM EST Narrative Organism Antibiotic Method Susceptibility Klebsiella pneumoniae ssp pneumoniae Amoxicillin/Clavulanate KAELA <=2 ug/ml: Susceptible Klebsiella pneumoniae ssp pneumoniae Ampicillin/Sulbactam KAELA 4 ug/ml: Susceptible Klebsiella pneumoniae ssp pneumoniae Piperacillin/Tazobactam KAELA <=4 ug/ml: Susceptible Klebsiella pneumoniae ssp pneumoniae Cefazolin (Urine) KAELA 2 ug/ml: Susceptible Klebsiella pneumoniae ssp pneumoniae Cefoxitin KAELA <=4 ug/ml: Susceptible Klebsiella pneumoniae ssp pneumoniae Ceftazidime KAELA <=0.5 ug/ml: Susceptible Klebsiella pneumoniae ssp pneumoniae Ceftriaxone KAELA <=0.25 ug/ml: Susceptible Klebsiella pneumoniae ssp pneumoniae Cefepime KAELA <=0.12 ug/ml: Susceptible Klebsiella pneumoniae ssp pneumoniae Meropenem KAELA <=0.25 ug/ml: Susceptible Klebsiella pneumoniae ssp pneumoniae Amikacin KAELA <=1 ug/ml: Susceptible Klebsiella pneumoniae ssp pneumoniae Gentamicin KAELA <=1 ug/ml: Susceptible Klebsiella pneumoniae ssp pneumoniae Ciprofloxacin KAELA <=0.06 ug/ml: Susceptible Klebsiella pneumoniae ssp pneumoniae Levofloxacin KAELA <=0.12 ug/ml: Susceptible Klebsiella pneumoniae ssp pneumoniae Nitrofurantoin KAELA 64 ug/ml: Intermediate Klebsiella pneumoniae ssp pneumoniae Trimethoprim/Sulfamethoxazo le KAELA <=20 ug/ml: Susceptible us Woody Cline MD LAB MICROBIOLOGY - GENERAL ORD ERABLES Final Result [facility] [address] [place] [address], * (ABNORMAL) CBC auto differential (09/08/2024 11:16 AM EST) Only the most recent of2 resultswithin the time period is included. [facility] WBC 9.9 4.8 - 10.8 K/mcL LAB HEMETOLOGY METHOD 09/08/2024 11:46 AM [facility] RBC 4.40 3.80 - 4.80 M/mcL LAB HEMETOLOGY METHOD 09/08/2024 11:46 AM [facility] Hemoglobin 13.0 11.5 - 16.0 g/dL LAB HEMETOLOGY METHOD 09/08/2024 11:46 AM [facility] Hematocrit 40.5 35.0 - 47.0 % LAB HEMETOLOGY METHOD 09/08/2024 11:46 AM [facility] MCV 92.7 79.0 - 98.0 FL LAB HEMETOLOGY METHOD 09/08/2024 11:46 AM [facility] MCH 29.7 27.0 - 32.0 pcg LAB HEMETOLOGY METHOD 09/08/2024 11:46 AM [facility] MCHC 32.1 32.0 - 37.0 g/dL LAB HEMETOLOGY METHOD 09/08/2024 11:46 AM [facility] RDW 12.8 11.0 - 15.0 % LAB HEMETOLOGY METHOD 09/08/2024 11:46 AM [facility] Platelets 360 130 - 400 K/mcL LAB HEMETOLOGY METHOD 09/08/2024 11:46 AM [facility] MPV 10.0 7.0 - 11.0 FL LAB HEMETOLOGY METHOD 09/08/2024 11:46 AM [facility] NRBC 0.0 <1.0 % LAB HEMETOLOGY METHOD 09/08/2024 11:46 AM [facility] NRBC Absolute 0.00 <0.10 K/mcL LAB HEMETOLOGY METHOD 09/08/2024 11:46 AM [facility] Neutrophils Relative 64.2 % LAB HEMETOLOGY METHOD 09/08/2024 11:46 AM [facility] Lymphocytes Relative 24.8 % LAB HEMETOLOGY METHOD 09/08/2024 11:46 AM [facility] Monocytes Relative 7.7 % LAB HEMETOLOGY METHOD 09/08/2024 11:46 AM [facility] Eosinophils Relative 2.1 % LAB HEMETOLOGY METHOD 09/08/2024 11:46 AM [facility] Basophils Relative 0.8 % LAB HEMETOLOGY METHOD 09/08/2024 11:46 AM [facility] Immature Granulocytes Relative 0.4 % LAB HEMETOLOGY METHOD 09/08/2024 11:46 AM [facility] Neutrophils Absolute 6.35 1.50 - 7.00 K/mcL LAB HEMETOLOGY METHOD 09/08/2024 11:46 AM [facility] Lymphocytes Absolute 2.45 1.00 - 5.00 K/mcL LAB HEMETOLOGY METHOD 09/08/2024 11:46 AM [facility] Monocytes Absolute 0.76 0.20 - 1.00 K/mcL LAB HEMETOLOGY METHOD 09/08/2024 11:46 AM [facility] Eosinophils Absolute 0.21 0.00 - 0.50 K/mcL LAB HEMETOLOGY METHOD 09/08/2024 11:46 AM [facility] Basophils Absolute 0.08 0.00 - 0.20 K/mcL LAB HEMETOLOGY METHOD 09/08/2024 11:46 AM [facility] Immature Granulocytes Absolute 0.04(H) 0.00 - 0.03 K/mcL LAB HEMETOLOGY METHOD 09/08/2024 11:46 AM [facility] Blood Venous blood specimen / Unknown Venipuncture / Unknown 09/08/2024 11:16 AM EST 09/08/2024 11:34 AM EST us Woody Cline MD LAB BLOOD ORDERABLES Final Res ult [facility] [address] [place] [address], [place] [phone] * Comprehensive metabolic panel (09/08/2024 11:16 AM EST) Only the most recent of2 resultswithin the time period is included. Sodium 137 133 - 145 mmol/L LAB CHEMISTRY METHOD 09/08/2024 12:08 PM [facility] Potassium 4.2 3.5 - 5.5 mmol/L LAB CHEMISTRY METHOD 09/08/2024 12:08 PM [facility] Chloride 103 96 - 110 mmol/L LAB CHEMISTRY METHOD 09/08/2024 12:08 PM [facility] CO2 31 21 - 32 mmol/L LAB CHEMISTRY METHOD 09/08/2024 12:08 PM [facility] Anion Gap 3 3 - 11 LAB CHEMISTRY METHOD 09/08/2024 12:08 PM [facility] Glucose 87 70 - 100 mg/dL LAB CHEMISTRY METHOD 09/08/2024 12:08 PM [facility] BUN 10 5 - 25 mg/dL LAB CHEMISTRY METHOD 09/08/2024 12:08 PM [facility] Creatinine 0.69 0.50 - 1.10 mg/dL LAB CHEMISTRY METHOD 09/08/2024 12:08 PM [facility] eGFR 97 >=60 mL/min/1. 73m2 LAB CHEMISTRY METHOD 09/08/2024 12:08 PM [facility] Comment:Calculation based on the??Chronic Kidney Disease Epidemiology Collaboration (CKD-EPI) equation refit??without adjustment for race. BUN/Creatinine Ratio 14.5 LAB CHEMISTRY METHOD 09/08/2024 12:08 PM [facility] Calcium 10.0 8.5 - 10.5 mg/dL LAB CHEMISTRY METHOD 09/08/2024 12:08 PM [facility] AST (SGOT) 32 10 - 42 unit/L LAB CHEMISTRY METHOD 09/08/2024 12:08 PM [facility] ALT (SGPT) 46 10 - 60 unit/L LAB CHEMISTRY METHOD 09/08/2024 12:08 PM [facility] Alkaline Phosphatase 106 42 - 121 unit/L LAB CHEMISTRY METHOD 09/08/2024 12:08 PM [facility] Total Protein 7.9 6.0 - 8.0 g/dL LAB CHEMISTRY METHOD 09/08/2024 12:08 PM [facility] Albumin 4.0 3.2 - 5.0 g/dL LAB CHEMISTRY METHOD 09/08/2024 12:08 PM [facility] Total Bilirubin 0.6 0.0 - 1.4 mg/dL LAB CHEMISTRY METHOD 09/08/2024 12:08 PM [facility] Blood Venous blood specimen / Unknown Venipuncture / Unknown 09/08/2024 11:16 AM EST 09/08/2024 11:34 AM EST us Woody Cline MD LAB BLOOD ORDERABLES Final Res ult [facility] [address] [place] [address], * (ABNORMAL) Lipid panel with reflex to direct LDL (07/30/2024 8:59 AM EST) Cholesterol 215(H) 0 - 200 mg/dL LAB CHEMISTRY METHOD 07/30/2024 12:10 PM [facility] Triglycerides 94 0 - 150 mg/dL LAB CHEMISTRY METHOD 07/30/2024 12:10 PM [facility] HDL 87 >=40 mg/dL LAB CHEMISTRY METHOD 07/30/2024 12:10 PM [facility] LDL Calculated 109(H) 0 - 100 mg/dL LAB CHEMISTRY METHOD 07/30/2024 12:10 PM [facility] VLDL Cholesterol Jose 18.8 mg/dL LAB CHEMISTRY METHOD 07/30/2024 12:10 PM [facility] Non HDL Chol. (LDL+VLDL) 128 <145 mg/dL LAB CHEMISTRY METHOD 07/30/2024 12:10 PM [facility] Chol/HDL Ratio 2.5 0.0 - 4.4 LAB CHEMISTRY METHOD 07/30/2024 12:10 PM [facility] Blood Venous blood specimen / Unknown Venipuncture / Unknown 07/30/2024 8:59 AM EST 07/30/2024 11:17 AM EST Tere Ayala MD LAB BLOOD ORDERABLES Final Re sult [facility] [address] [place] [address], [place] [phone] * Thyroid stimulating hormone (07/30/2024 8:59 AM EST) [facility] TSH 2.69 0.40 - 4.00 mcIU/mL LAB CHEMISTRY METHOD 07/30/2024 12:07 PM [facility] Blood Venous blood specimen / Unknown Venipuncture / Unknown 07/30/2024 8:59 AM EST 07/30/2024 11:17 AM EST us Tere Ayala MD LAB BLOOD ORDERABLES Final Re sult [facility] [address] [place] [address], [place] [phone] * Hemoglobin A1c (07/30/2024 8:59 AM EST) Hemoglobin A1C 6.3 <6.5 % LAB CHEMISTRY METHOD 07/30/2024 8:48 PM EST [facility] Mean Bld Glu Estim. 134 mg/dL LAB CHEMISTRY METHOD 07/30/2024 8:48 PM [facility] Blood Venous blood specimen / Unknown Venipuncture / Unknown 07/30/2024 8:59 AM EST 07/30/2024 11:14 AM EST us Tere Ayala MD LAB BLOOD ORDERABLES Final Re sult [facility] [address] [place] [id number], * Pap smear (05/29/2024 12:00 AM EST) Interpretation Negative for intraepithelial lesion or malignancy 06/03/2024 11:47 AM [facility] Specimen Adequacy Satisfactory for evaluation 06/03/2024 11:47 AM [facility] Pap Methodology Liquid Based Pap Test 06/03/2024 11:47 AM [facility] Disclaimer The Pap test is a screening test which carries an inherent false negative rate. These test results should be correlated with the patient's clinical findings and history. This Pap test was processed using an automated screening system. Technical cytopathology services provided by [facility], at [address] [place] [id number] (CLIA # [id number]/Matheus Mays MD, Field Map Editor.) 06/03/2024 11:47 AM [facility] Console Pap Interpretation Reported 06/03/2024 11:47 AM [facility] Brushing/Spatula Vaginal structure / Unknown 05/29/2024 05/30/2024 7:51 AM EST us Nitish Velasco MD LAB CYTOLOGY ORDERABLES Final Result [facility] [address] [place] [address], * AGUSTO SCREENING DIGITAL (02/28/2024 9:56 AM EDT) Anatomical Region Laterality Modality Mammography 02/28/2024 7:44 AM EDT Narrative 02/28/2024 9:[address] [facility] Diagnostic Imaging Department [address] [place] [address] Patient: ??NAYELI VELASQUEZ ?/Age/Sex: 1960 - 64 - F Unit#: ??[id number] ? Location/Status: ??SPDIMAM/REG CLI ? Mnemonic/Ordering Site: ??DIGSC/SPMAM Ordering Physician: ??TERE AYALA MD Agusto Screening Digital - 02/28/24 - 0755 Report Status:Signed EXAM: Agusto Screening Digital EXAM DATE AND TIME: 02/28/2024 7:56 AM HISTORY: ??Screening. COMPARISON: ??03/29/22, 01/04/21, 01/01/21, 06/28/19, 02/14/16 TECHNIQUE: Bilateral digital breast tomosynthesis was performed in the CC and MLO projections. Computer aided detection with [employer] 3D 3.1 was employed. TISSUE DENSITY: b. There are scattered areas of fibroglandular density. FINDINGS: No suspicious masses, grouped microcalcifications, or areas of architectural distortion are seen. The skin and vascularity are unremarkable. IMPRESSION: Stable mammographic appearance of the breasts. ??No evidence of malignancy is seen. A negative mammogram in the presence of a clinically suspicious palpable abnormality does not preclude the possibility of malignancy or alter the indications for biopsy. BI-RADS: ??Category 1: Negative RECOMMENDATION(S): 1: Routine screening mammogram BILATERAL in 1 year. Dictating Physician: ??WENDY ELLIS MD Electronically Signed by: ??WENDY ELLIS MD Dic Date/Time: ??02/28/24 0956 Sign date/Time: ??02/28/2456 Procedure Note Wendy Elils MD - 04/30/2024 [facility] Diagnostic Imaging Department [address] [place] [address] Patient: NAYELI VELASQUEZ IBRAHIMA /Age/Sex: 1960 - 64 - F Unit#: [id number] Location/Status: [facility] CLI Mnemonic/Ordering Site: [facility] Ordering Physician: TERE AYALA MD [facility] Screening Digital - 02/28/24 - 0755 Report Status:Signed EXAM: [facility] Screening Digital EXAM DATE AND TIME: 02/28/2024 7:56 AM HISTORY: Screening. COMPARISON: 03/29/22, 01/04/21, 01/01/21, 06/28/19, 02/14/16 TECHNIQUE: Bilateral digital breast tomosynthesis was performed in the CCand MLO projections. Computer aided detection with [employer] AI 3D 3.1was employed. TISSUE DENSITY: b. There are scattered areas of fibroglandular density. FINDINGS: No suspicious masses, grouped microcalcifications, or areas ofarchitectural distortion are seen. The skin and vascularity are unremarkable. IMPRESSION: Stable mammographic appearance of the breasts. No evidence of malignancyis seen. A negative mammogram in the presence of a clinically suspicious palpable abnormality does not preclude the possibility of malignancy or alter the indications for biopsy. BI-RADS: Category 1: Negative RECOMMENDATION(S): 1: Routine screening mammogram BILATERAL in 1 year. Dictating Physician: WENDY ELLIS MD Electronically Signed by: WENDY ELLIS MD Dic Date/Time: 02/28/24 09 Sign date/Time: 02/28/24 09 us Tere Ayala MD IMG BI PROCEDURES Final Resul t from Last 3 Months or Most Recently Relevant to Health Maintenance Insurance PLAN Care Teams Architect In Training Relationship Specialty Start Date End Date Tere Ayala MD [address] [place] [address] PCP - General Internal Medicine 07/14/20
--- OUTSIDE RECORDS SUMMARY | 2024-10-20 17:37 | XMS_ITS ---
Author Organization [facility] Address [address] [place] [id number] Care Team Providers Care Data Input Clerk Name Role Phone Tere Jones Primary Care Provider Unavailab Chris Napoles [phone] REASON FOR VISIT epigastric pain Encounters Encounter Location Date Provider Diagnosis [facility] [address] [facility] [address] [place] [phone] 05/19/2024 Chris Benoit Plan Of Treatment Next Appt Details Provider Name:Chris Benoit , 10/21/2024 09:30:00 AM, [address] [facility], [address], [place], [address], Progress Notes * BASHIR MOEEDOB:1959 (64 yo F)Acc No.[id number]:05/19/2024 Patient:?BASHIR MOE :1960???Age:64 Y???Sex:Female Address:[address], [place] [address] * true * Date:? Generated for Sharathi ng/Irineo/eTransmitting on:?10/20/2024 05:36 PM EDT
--- OUTSIDE RECORDS SUMMARY | 2024-10-20 17:37 | XMS_ITS | Encounter Summary ---
Author Organization [facility] Address [address] [place] [address] Care Team Providers Care Applications Support Specialist Name Role Phone Tere Jones MD Primary Care Provider [phone] Encounter Details Date Type Department Care Team (Latest Contact Info) Description 05/30/2024 Lab Requisition [facility] - Main Lab [address] [place] [phone] Nitish Velasco MD [address] [phone] Encounter for gynecological examination (general) (routine) without abnormal findings Social History Tobacco Use Types Packs/Day Years [...] Procedure Name Priority Date/Time Associated Diagnosis Comments PAP SMEAR Routine 05/29/2024 12:00 AM EST Encounter for gynecological examination (general) (routine) without abnormal findings documented in this encounter Results * Pap smear (05/29/2024 12:00 AM EST) Interpretation Negative for intraepithelial lesion or malignancy 06/03/2024 11:47 AM EST [facility] ([facility]) [facility] Specimen Adequacy Satisfactory for evaluation 06/03/2024 11:47 AM EST [facility] Pap Methodology Liquid Based Pap Test 06/03/2024 11:47 AM EST [facility] Disclaimer The Pap test is a screening test which carries an inherent false negative rate. These test results should be correlated with the patient's clinical findings and history. This Pap test was processed using an automated screening system. Technical cytopathology services provided by [facility], at [address] [place] [address] (CLIA # [id number]/Matheus Mays MD, Unit Controller.) 06/03/2024 11:47 AM [facility] Console Pap Interpretation Reported 06/03/2024 11:47 AM [facility] Brushing/Spatula Vaginal structure / Unknown 05/29/2024 05/30/2024 7:51 AM EST us Nitish Velasco MD LAB CYTOLOGY ORDERABLES Final Result Performing Organization Address City/State/[facility] Co de Phone Number [facility]) [facility] [address] [place] [address], documented in this encounter Visit Diagnoses Diagnosis Encounter for gynecological examination (general) (routine) without abnormal findings documented in this encounter Care Teams Applications Support Specialist Relationship Specialty Start Date End Date Tere Jones MD [facility] [address] PCP - General Internal Medicine 07/14/20 documented as of this encounter
[2024-10-20 19:12] LABS: Alanine Aminotransferase 36 U/L (0-31); Albumin Level 4.3 g/dL (3.5-5.0); Alkaline Phosphatase 88 U/L (39-117); Anion Gap 12 (12-20); Aspartate Amino Transferase 35 U/L (5-31); Bilirubin Total 0.5 mg/dL (0.0-1.0); Blood Urea Nitrogen 13 mg/dL (9-16); Calcium 9.6 mg/dL (8.4-10.2); Carbon Dioxide 25 mmol/L (22-29); Chloride 106 mmol/L (96-108); Estimated Glomerular Filt Rate > 60; Glucose Random 148 mg/dL (60-115); Potassium 3.8 mmol/L (3.3-5.1); Sodium 139 mmol/L (135-145); Total Protein 7.7 g/dL (6.5-8.0)
[2024-10-20 19:16] LABS: Thyroid Stimulating Hormone 2.24 uIU/mL (0.32-4.0)
== END 2024-10-20 14:43 | disposition home or self-care (01) ==
LOC: HO.LAB 14:42
PROVIDERS: PCP Internal Medicine; Visit Provider Internal Medicine
DX: Z00.00 Encounter for general adult medical examination without abnormal findings (principal); N30.00 Acute cystitis without hematuria; Z90.710 Acquired absence of both cervix and uterus; R73.01 Impaired fasting glucose; K44.9 Diaphragmatic hernia without obstruction or gangrene; E03.9 Hypothyroidism, unspecified
CPT/HCPCS: 36415; 80053; 83036; 84443; 87086

== ENCOUNTER 2024-12-24 14:53 | Outpatient (REF) | payer OTHER, SELFPAY ==
--- OUTSIDE RECORDS SUMMARY | 2024-12-24 17:06 | XMS_ITS | Clinical Summary ---
Author Organization [address] Address [address] [place] [phone] Phone Care Team Providers Care Technical Aide Name Role Phone Tere Ayala MD Primary Care Provider [phone] Allergies No known active allergies Social History Tobacco Use Types Packs/Day Years [...] of Health Screening 06/14/2022 COVID-19 Vaccine ( season) 2024 Influenza Vaccine (Season Ended) 2025 Breast Cancer Screening 02/27/2026 02/28/20 24, 03/29/2022, 01/02/2021, Additional history exists Cervical Cancer [...] Procedure Name Priority Date/Time Associated Diagnosis Comments LIPID PANEL WITH REFLEX TO DIRECT LDL Routine 07/30/2024 8:59 AM EST Myxedema heart disease Pure hypercholesterolemia Obstructive sleep apnea (adult) (pediatric) Impaired fasting glucose PAP SMEAR Routine 05/29/2024 12:00 AM EST Encounter for gynecological examination (general) (routine) without abnormal findings LUIS ENRIQUE SCREENING DIGITAL Routine 02/28/2024 9:56 AM EDT Encounter for screening mammogram for malignant neoplasm of breast from Last 3 Months or Most Recently Relevant to Health Maintenance Results * (ABNORMAL) Lipid panel with reflex to direct LDL (07/30/2024 8:59 AM EST) Cholesterol 215(H) 0 - 200 mg/dL LAB CHEMISTRY METHOD 07/30/2024 12:10 PM EST [facility] Triglycerides 94 0 - 150 mg/dL LAB CHEMISTRY METHOD 07/30/2024 12:10 PM EST [facility] HDL 87 >=40 mg/dL LAB CHEMISTRY METHOD 07/30/2024 12:10 PM EST [facility] LDL Calculated 109(H) 0 - 100 mg/dL LAB CHEMISTRY METHOD 07/30/2024 12:10 PM EST [facility] VLDL Cholesterol Jose 18.8 mg/dL LAB CHEMISTRY METHOD 07/30/2024 12:10 PM EST [facility] Non HDL Chol. (LDL+VLDL) 128 <145 mg/dL LAB CHEMISTRY METHOD 07/30/2024 12:10 PM EST [facility] Chol/HDL Ratio 2.5 0.0 - 4.4 LAB CHEMISTRY METHOD 07/30/2024 12:10 PM EST [facility] Blood Venous blood specimen / Unknown Venipuncture / Unknown 07/30/2024 8:59 AM EST 07/30/2024 11:17 AM EST us Tere Ayala MD LAB BLOOD ORDERABLES Final Re sult [facility] [address] [place] [address], * Pap smear (05/29/2024 12:00 AM EST) Interpretation Negative for intraepithelial lesion or malignancy 06/03/2024 11:47 AM [facility] Specimen Adequacy Satisfactory for evaluation 06/03/2024 11:47 AM [facility] Pap Methodology Liquid Based Pap Test 06/03/2024 11:47 AM [facility] Disclaimer The Pap test is a screening test which carries an inherent false negative rate. These test results should be correlated with the patient's clinical findings and history. This Pap test was processed using an automated screening system. Technical cytopathology services provided by [facility], at [address] [place] [address] (CLIA # [id number]/Matheus Mays MD, Embossing Press Operator.) 06/03/2024 11:47 AM [facility] Console Pap Interpretation Reported 06/03/2024 11:47 AM [facility] Brushing/Spatula Vaginal structure / Unknown 05/29/2024 05/30/2024 7:51 AM EST us Nitish Velasco MD LAB CYTOLOGY ORDERABLES Final Result Performing Organization Address City/State/[facility] Co de Phone Number [facility] [address] [place] [address], * LUIS ENRIQUE SCREENING DIGITAL (02/28/2024 9:56 AM EDT) Anatomical Region Laterality Modality Mammography 02/28/2024 7:44 AM EDT Narrative 02/28/2024 9:56 AM EDT [facility] Diagnostic Imaging Department [address] [place] [address] Patient: ??NAYELI VELASQUEZ ?/Age/Sex: 1960 - 64 - F Unit#: ??[id number] ? Location/Status: ??SPDIMAM/REG CLI ? Mnemonic/Ordering Site: ??DIGSC/SPMAM Ordering Physician: ??TERE AYALA MD [facility] Screening Digital - 02/28/24 - 0755 Report Status:Signed EXAM: [facility] Screening Digital EXAM DATE AND TIME: 02/28/2024 7:56 AM HISTORY: ??Screening. COMPARISON: ??03/29/22, 01/04/21, 01/01/21, 06/28/19, 02/14/16 TECHNIQUE: Bilateral digital breast tomosynthesis was performed in the CC and MLO projections. Computer aided detection with [employer] 3D 3.1 was employed. TISSUE DENSITY: b. [...] 0956 Sign date/Time: ??02/28/2456 Procedure Note Wendy Ellis MD - 04/30/2024 [facility] Diagnostic Imaging Department [address] [place] [id number] Patient: VELASQUEZNAYELI ALEXANDRA /Age/Sex: 1960 - 64 - F Unit#: [id number] Location/Status: SPDIMAM/REG CLI Mnemonic/Ordering Site: [facility] Ordering Physician: TERE AYALA MD [facility] Screening Digital - 02/28/24 - 0755 Report Status:Signed EXAM: [facility] Screening Digital EXAM DATE AND TIME: 02/28/2024 7:56 AM HISTORY: Screening. COMPARISON: 03/29/22, 01/04/21, 01/01/21, 06/28/19, 02/14/16 TECHNIQUE: Bilateral digital breast tomosynthesis was performed in the CCand MLO projections. Computer aided detection with [employer] 3D 3.1was employed. TISSUE DENSITY: b. There [...] MD Dic Date/Time: 02/28/24 09 Sign date/Time: 02/28/24955 Tere Ayala MD IMG BI PROCEDURES Final Resul t from Last 3 Months or Most Recently Relevant to Health Maintenance Insurance PLAN Care Teams Technical Aide Relationship Specialty Start Date End Date Tere Ayala MD [address] PCP - General Internal Medicine 07/14/20
== END 2024-12-24 14:54 | disposition home or self-care (01) ==
LOC: HO.LAB 14:53
PROVIDERS: PCP Internal Medicine; Visit Provider Internal Medicine
DX: R30.0 Dysuria (principal); R35.0 Frequency of micturition
CPT/HCPCS: 87086; 87088; 87186

== ENCOUNTER 2024-12-31 12:21 | Outpatient (AMB) | payer OTHER, SELFPAY ==
--- NOTE | 2024-12-31 12:37 | A.OFFVIS_ITS ---
Intake Visit Reasons: dysuria/ possbile IC Intake Note: New Patient is present for dysuria, frequency , blood in urine Urology Rx: none PVR:0 Blood Thinners: none Marketing Budget Analyst Required: No Allergies No Known Allergies Allergy (Verified 12/31/24 13:36) Medication List - Last Reconciled 12/31/24 by BHUMI Castillo estradiol 0.01%(0.1mg/gram) (Estrace) 1 g vaginal 3XW 90 days levothyroxine 1 tab PO DAILY multivitamin with folic acid 400 mcg (Daily-Bud (with folic acid)) 1 tab PO DAILY omeprazole 1 cap PO DAILY pravastatin 1 tab PO DAILY sulfamethoxazole-trimethoprim 800-160 mg (Bactrim DS) 1 tab PO BID 14 days HPI Comments Details: Nayeli is a very pleasant 64-year-old female patient of Dr. Jones. She has a past medical history of hyperlipidemia, GERD, irritable bowel syndrome, hiatal hernia status post repair 09/2024, and hypothyroidism. She presents to the office today as a new patient for recurrent urinary tract infections and lower urinary tract symptoms she has been experiencing. In discussion with the patient today she reports noting since August of this year she has been having ongoing issues with dysuria. She reports following up with her PCP and having been treated multiple times for urinary tract infection however continues to experience intermittent episodes of dysuria. She also reports having had a recent hiatal hernia repair with a general surgeon in [place] however does not recall providers name. She also reports following up with Dr. Arriola her property coordinator as she has a longstanding history of IBS. She reports most recently following up with her PCP and being prescribed Macrobid however does not feel this has been helpful. In office urinalysis results reviewed with the patient today. 2+ leukocytes positive nitrates. PVR 0 mL. We did discuss potential causes of recurrent urinary tract infections as well as further treatment options and risks and benefits of these treatment options. We discussed obtaining retroperitoneal ultrasound for further assessment evaluation. She does report episodes of urinary urgency and frequency however feels most bothersome urinary issue is dysuria. She is not currently sexually active. She denies incontinence, nocturia, hematuria, foul smelling urine, changes to urinary stream, flank pain, fever, and or chills. In review of patient's chart it appears urine cultures are as follows: 01/07 E coli 11/07 no growth All questions were answered. She otherwise offers no other issues or concerns at this time. [facility] Medical History (Updated 12/31/24 @ 13:35 [facility] HLD (hyperlipidemia) Hypothyroid IBS (irritable bowel syndrome) Hiatal hernia GERD (gastroesophageal reflux disease) Surgical History History of back surgery History of esophagogastroduodenoscopy (EGD) H/O colonoscopy Social History (Updated 05/08/24 @ 14:44 by Traci Lopez RN) Do you presently have visiting nurse or other home services: No Patient Tobacco Use Status: Former Tobacco user Review of Systems Const All systems reviewed & are unremarkable except as noted in HPI and below Physical Exam Const General: cooperative, healthy appearing, comfortable, no acute distress, well developed, alert and awake Orientation/consciousness: patient oriented x3 Limitations: no limitations HEENT Head: Yes normal to inspection, Yes normocephalic and Yes atraumatic Ears: hearing grossly normal bilaterally Eyes General: appearance normal, both eyes and all related structures Neck Neck: Yes normal visual inspection and Yes trachea midline Chest Chest palpation & inspection: normal inspection of the chest Resp Effort & Inspection: normal respiratory effort and able to speak in complete sentences Cardio Rate: regular rate GI Inspection: Yes normal to inspection General: Yes no CVA tenderness Back/Spine/Pelvis Back: no CVA tenderness Skin General skin exam: no rashes or lesions noted Neuro General: patient oriented x3 Extrem General: Yes normal to inspection Psych Appearance: grossly normal and well kempt Mental Status: mental status grossly normal Speech and movement: Normal speech and movement present and Clear speech present Affect: normal affect Attitude: cooperative Thought process: Normal thought process present Thought content: Normal thought content present Insight: Fair insight present (Psych) Judgement: Fair judgement present (Psych) Office Procedures Post Void Residual Post Residual Void Post Void Residual (PVR): 0 43208-Yspl Void Residual by ultrasound Results AMB Urinalysis, Automated UA Leukoctes 125 Azra/uL Last Edit by Nadira Menendez MA on 12/31/24 13:10 UA Nitrite Positive Last Edit by Nadira Menendez MA on 12/31/24 13:10 UA Urobilinogen 0.2 mg/dL Last Edit by Nadira Menendez, MA on 12/31/24 13:10 UA Protein 0 mg/dL Last Edit by Nadira Menendez, MA on 12/31/24 13:10 UA pH 6.0 Last Edit by Nadira Menendez, MA on 12/31/24 13:10 UA Blood 0 Danny/uL Last Edit by Nadira Menendez, MA on 12/31/24 13:10 UA Specific Lynwood 1.015 Last Edit by Nadira Menendez, MA on 12/31/24 13:10 UA Ketone Negative Last Edit by Nadira [place], [place] on 12/31/24 13:10 UA Bilirubin 0 mg/dL Last Edit by Nadira Menendez, MA on 12/31/24 13:10 UA Glucose 0 mg/dL Last Edit by Nadira Menendez, MA on 12/31/24 13:10 Results Reviewed Results Reviewed: Laboratory Last Values Urine pH (Auto) 6.0 12/31/24 12:57 Specific Lynwood (Auto) 1.015 12/31/24 12:57 Urine Protein (Auto) 0 mg/dL 12/31/24 12:57 Glucose (UA)(Auto) 0 mg/dL 12/31/24 12:57 Urine Ketones (Auto) Negative 12/31/24 12:57 Urine Blood (Auto) 0 Danny/uL 12/31/24 12:57 Urine Nitrite (Auto) Positive 12/31/24 12:57 Urine Bilirubin (Auto) 0 mg/dL 12/31/24 12:57 Urine Urobilinogen (Auto) 0.2 mg/dL 12/31/24 12:57 Leukocyte Esterase (Auto) 125 Azra/uL 12/31/24 12:57 Assessment & Plan Assessment & Plan (1) Recurrent urinary tract infection: Code(s): N39.0 - Urinary tract infection, site not specified Category: Medical (2) Dysuria: Code(s): R30.0 - Dysuria Category: Medical Plan In office urinalysis results reviewed with the patient today; as noted above. PVR 0 mL We discussed at length potential causes of recurrent urinary tract infections as well as further treatment options and risks and benefits of these treatment options. Stop Macrobid. Start Bactrim as discussed and prescribed. Previous urine culture results were reviewed with the patient today; as noted above. Will obtain retroperitoneal ultrasound for further assessment evaluation. We discussed at length correlation of bowel issues with recurrent urinary tract infections Discussed UTI prevention with D mannose supplement, vitamin-C, increasing fluid intake, behavioral therapy with timed voiding, perineal hygiene and postcoital voiding, and management of constipation with stool softeners and increased fiber intake. Start Estrace cream as discussed and prescribed. Follow-up in 1-3 months with imaging and PVR; or sooner with any issues, concerns, and or questions. Orders: Orders AMB Urinalysis Automated Today Z13.9 - Encounter for screening, unspecified AMB Post Void Residual by ultrasound Today Z13.9 - Encounter for screening, unspecified US retroperitoneal comp Today N39.0 - Urinary tract infection, site not specified, R30.0 - Dysuria Medications: New sulfamethoxazole-trimethoprim 800-160 mg (Bactrim DS) 1 tab PO BID 28 tabs 0RF 14 days N39.0 - Urinary tract infection, site not specified estradiol 0.01%(0.1mg/gram) (Estrace) Apply a pea-sized amount to the urethra daily x1 month and then 3 times per week thereafter 1 g vaginal 3XW 42.5 grams 3RF 90 days Patient Instructions: The patient had an opportunity to ask questions regarding the treatment plan. All questions were answered. Physical exam, labs, and imaging were discussed and reviewed in detail. As well as risks, benefits, and discussion of treatment choices. No major barriers to understanding were identified. The patient expressed understanding and agreement with the above treatment plan. The patient was made aware they should contact our office by phone for worsening of their current condition, the appearance of new symptoms, or with any questions or concerns. Compliance is encouraged with any medications and follow up testing that is ordered. It is a privilege to be allowed the opportunity to participate in? your urological care.? Again, if you have any questions or concerns If you have any questions or concerns please do not hesitate to contact me. The office is [phone]. This note is constructed using voice recognition software. While every effort has been made to ensure accuracy or nurse manager errors may have been included. Yours sincerely, BHUMI Castillo Coding Level of Care Code New Pt Level 4 (67061) Diagnoses Recurrent urinary tract infection N39.0 Dysuria R30.0 CPT Codes Post Residual Void - PVR CPT Code: 25681-Cbhz Void Residual by ultrasound ([id number])
--- OUTSIDE RECORDS SUMMARY | 2024-12-31 14:14 | XMS_ITS | Clinical Summary ---
Author Organization [address] Address [address] [place] [phone] Phone Care Team Providers Care Administrative Services Officer Name Role Phone Tere Ayala MD Primary Care Provider [phone] Allergies No known active allergies Social History [...] 64 09/08/2024 10:16 AM EST Temperature 36.4 C (97.5 F) 09/08/2024 10:16 AM EST Respiratory Rate 16 09/08/2024 10:16 AM EST [...] LAB CHEMISTRY METHOD 07/30/2024 12:10 PM EST [facility] Triglycerides 94 0 - 150 mg/dL LAB CHEMISTRY METHOD 07/30/2024 12:10 PM EST [facility] HDL 87 >=40 mg/dL LAB CHEMISTRY METHOD 07/30/2024 12:10 PM EST [facility] LDL Calculated 109(H) 0 - 100 mg/dL LAB CHEMISTRY METHOD 07/30/2024 12:10 PM EST [facility] VLDL Cholesterol Jose 18.8 mg/dL LAB CHEMISTRY METHOD 07/30/2024 12:10 PM EST [facility] Non HDL Chol. (LDL+VLDL) 128 <145 mg/dL LAB CHEMISTRY METHOD 07/30/2024 12:10 PM EST [facility] Chol/HDL Ratio 2.5 0.0 - 4.4 LAB CHEMISTRY METHOD 07/30/2024 12:10 PM EST [facility] Blood Venous blood specimen / Unknown Venipuncture / Unknown 07/30/2024 8:59 AM EST 07/30/2024 11:17 AM EST us Tere Ayala MD LAB BLOOD ORDERABLES Final Re sult [facility] [address] [place] [address], * Pap smear (05/29/2024 12:00 AM EST) Interpretation Negative for intraepithelial lesion or malignancy 06/03/2024 11:47 AM EST [facility] Specimen Adequacy Satisfactory for evaluation 06/03/2024 11:47 AM EST [facility] Pap Methodology Liquid Based Pap Test 06/03/2024 11:47 AM EST [facility] Disclaimer The Pap test is a screening test which carries an inherent false negative rate. These test results should be correlated with the patient's clinical findings and history. This Pap test was processed using an automated screening system. Technical cytopathology services provided by [facility], at [address] [place] [address] (CLIA # [id number]/Matheus Mays MD, Ancillary Services Manager.) 06/03/2024 11:47 AM EST [facility] Console Pap Interpretation Reported 06/03/2024 11:47 AM [facility] Brushing/Spatula Vaginal structure / Unknown 05/29/2024 05/30/2024 7:51 AM EST us Nitish Velasco MD LAB CYTOLOGY ORDERABLES Final Result [facility]) [facility] [address] [place] [address], * LUIS ENRIQUE SCREENING DIGITAL (02/28/2024 9:56 AM EDT) Anatomical Region Laterality Modality Mammography 02/28/2024 7:44 AM EDT Narrative 02/28/2024 9:56 AM EDT [facility] Diagnostic Imaging Department [address] [place], [place] [id number] Patient: NAYELI VELASQUEZ./Age/Sex: 1960 - 64 - F Unit#: [id number] Location/Status: SPDIMAM/REG CLI Mnemonic/Ordering Site: [facility] Ordering Physician: TERE AYALA MD [facility] Screening Digital - 02/28/24 - 0755 Report Status:Signed EXAM: [facility] Screening Digital EXAM DATE AND TIME: 02/28/2024 7:56 AM HISTORY: Screening. COMPARISON: 03/29/22, 01/04/21, 01/01/21, 06/28/19, 02/14/16 TECHNIQUE: Bilateral digital breast tomosynthesis was performed in the CC and MLO projections. Computer aided detection with [employer] 3D 3.1 was employed. TISSUE DENSITY: b. There are scattered areas of fibroglandular density. FINDINGS: No suspicious masses, grouped microcalcifications, or areas of architectural distortion are seen. The skin and vascularity are unremarkable. IMPRESSION: Stable mammographic appearance of the breasts. No evidence of malignancy is seen. A negative mammogram in the presence of a clinically suspicious palpable abnormality does not preclude the possibility of malignancy or alter the indications for biopsy. BI-RADS: Category 1: Negative RECOMMENDATION(S): 1: Routine screening mammogram BILATERAL in 1 year. Dictating Physician: WENDY ELLIS MD Electronically Signed by: WENDY ELLIS MD Dic Date/Time: 02/28/24955 Sign date/Time: 02/28/24955 Procedure Note Wendy Ellis MD - 04/30/2024 [facility] Diagnostic Imaging Department [address] [place], [place] [id number] Patient: ABHINAYELI /Age/Sex: 1960 - 64 - F Unit#: [id number] Location/Status: SPDIMAM/REG CLI Mnemonic/Ordering Site: [facility] Ordering Physician: TERE AYALA MD [facility] Screening Digital - 02/28/24 - 0755 Report Status:Signed EXAM: [facility] Screening Digital EXAM DATE AND TIME: 02/28/2024 7:56 AM HISTORY: Screening. COMPARISON: 03/29/22, 01/04/21, 01/01/21, 06/28/19, 02/14/16 TECHNIQUE: Bilateral digital breast tomosynthesis was performed in the CCand MLO projections. Computer aided detection with [employer] 3D 3.1was employed. TISSUE DENSITY: b. There [...] Signed by: WENDY ELLIS MD Dic Date/Time: 02/28/24955 Sign date/Time: 02/28/24955 us Tere Ayala MD IMG BI PROCEDURES Final Resul t from Last 3 Months or Most Recently Relevant to Health Maintenance Insurance PLAN Care Teams Administrative Services Officer Relationship Specialty Start Date End Date Tere Ayala MD [facility] [address] PCP - General Internal Medicine 07/14/20
== END 2024-12-31 13:35 | disposition home or self-care (01) ==
LOC: HO.HUSH 12:22
PROVIDERS: PCP Internal Medicine; Visit Provider Nurse Practitioner Family
DX: N39.0 Urinary tract infection, site not specified (principal); R30.0 Dysuria; Z13.9 Encounter for screening, unspecified
CPT/HCPCS: 99204

== ENCOUNTER 2024-12-31 13:15 | Outpatient (REF) | payer OTHER, SELFPAY | END 2024-12-31 13:16 | disposition home or self-care (01) | LOC: HO.LNP 13:15 | PROVIDERS: Visit Provider Nurse Practitioner Family | DX: R30.0 Dysuria (principal); N39.0 Urinary tract infection, site not specified | CPT/HCPCS: 51798; 81003; 99202 ==

== ENCOUNTER 2025-03-18 10:29 | Outpatient (REF) | payer OTHER, SELFPAY ==
--- OUTSIDE RECORDS SUMMARY | 2025-03-18 12:17 | XMS_ITS | Encounter Summary ---
Author Organization [facility] Address [address] [place] [address] Care Team Providers Care Manager Stone Name Role Phone Tere Jones MD Primary Care Provider [phone] Encounter Details Date Type Department Care Team (Latest Contact Info) Description 05/30/2024 Lab Requisition [facility] - Main Lab [address] [place] [phone] Nitish Velasco MD [address] [phone] Encounter for gynecological examination (general) (routine) without [...] lesion or malignancy 06/03/2024 11:47 AM EST [facility] Specimen Adequacy Satisfactory for evaluation 06/03/2024 11:47 AM EST [facility] Pap Methodology Liquid Based Pap Test 06/03/2024 11:47 AM EST [facility] Disclaimer The Pap test is a screening test which carries an inherent false negative rate. These test results should be correlated with the patient's clinical findings and history. This Pap test was processed using an automated screening system. Technical cytopathology services provided by [facility], at [address] [place] [address] (CLIA # [id number]/Matheus Mays MD, Tour Manager.) 06/03/2024 11:[address] [facility] Console Pap Interpretation Reported 06/03/2024 11:[address] [facility] Brushing/Spatula Vaginal structure / Unknown 05/29/2024 05/30/2024 7:51 AM EST us Nitish Velasco MD LAB CYTOLOGY ORDERABLES Final Result Performing Organization Address City/State/[facility] Co de Phone Number [facility]) [facility] [address] [place] [address], documented in this encounter Visit Diagnoses Diagnosis Encounter for gynecological examination (general) (routine) without abnormal findings documented in this encounter Care Teams Manager Stone Relationship Specialty Start Date End Date Tere Jones MD [facility] [address] PCP - General Internal Medicine 07/14/20 documented as of this encounter
--- OUTSIDE RECORDS SUMMARY | 2025-03-18 12:17 | XMS_ITS | Encounter Summary ---
Author Organization [facility] Address [address] [place] [address] Care Team Providers Care Plate Shop Helper Name Role Phone Tere Jones MD Primary Care Provider [phone] Encounter Details Date Type Department Care Team ([facility] st Contact Info) Description 05/29/2024 Lab Requisition [facility] - Main Lab [address] [place] [phone] Nitish Velasco MD 299 [facility] [address] [place] [phone] Acute vaginitis Social History Tobacco Use Types [...] vaginalis Negative Negative 05/30/2024 11:09 AM EST [facility] HOSPITAL LAB Gardnerella vaginalis Negative Negative 05/30/2024 11:09 AM EST [facility] Kelin Species Negative Negative 11:09 AM EST [facility] Swab Vaginal structure / Unknown 05/29/2024 05/29/2024 6:07 PM EST us Nitish Velasco MD LAB MICROBIOLOGY - GENERAL ORD ERABLES Final Result [facility] [address] [place] [address], documented in this encounter Visit Diagnoses Diagnosis Acute vaginitis Unspecified vaginitis and vulvovaginitis documented in this encounter Care Teams Plate Shop Helper Relationship Specialty Start Date End Date Tere Jones MD [address] [facility] [address] [place], [place] PCP - General Internal Medicine 07/14/20 documented as of this encounter
--- OUTSIDE RECORDS SUMMARY | 2025-03-18 12:17 | XMS_ITS | Clinical Summary ---
Author Organization [address] Address [address] [place] [phone] Phone Care Team Providers Care Instrument Lens Generator Name Role Phone Tere Ayala MD Primary Care Provider [phone] Allergies No known active allergies Social History [...] 03/14/2013 03/14/2012 Colorectal Cancer Screening: Colonoscopy 06/14/2022 Hepatitis C Screening 06/14/2022 Osteoporosis Screening (Bone Density Screening) 06/14/2022 Social Influencers of Health Screening 06/14/2022 COVID-19 Vaccine ( season) 2024 Depression Screening 07/16/2024 Falls Risk Assessment 01/27/2025 Influenza Vaccine (#1) 2025 Breast Cancer Screening 02/27/2026 02/28/20 24, 03/29/2022, 01/02/2021, Additional history exists Cervical Cancer Screening: Pap Smear 05/29/2027 05/29/2024 Cholesterol Screening (Lipid Panel) 07/30/2029 07/30/2024 RSV Immunization Adult Patients (1 - 1-dose 75+ series) 01/27/2035 HIB Vaccines Aged Out No longer eligi [...] LAB CHEMISTRY METHOD 07/30/2024 12:10 PM EST [facility] Triglycerides 94 0 - 150 mg/dL LAB CHEMISTRY METHOD 07/30/2024 12:10 PM EST [facility] HDL 87 >=40 mg/dL LAB CHEMISTRY METHOD 07/30/2024 12:10 PM EST [facility] LDL Calculated 109(H) 0 - 100 mg/dL LAB CHEMISTRY METHOD 07/30/2024 12:[address] [facility] VLDL Cholesterol Jose 18.8 mg/dL LAB CHEMISTRY METHOD 07/30/2024 12:10 PM EST [facility] Non HDL Chol. (LDL+VLDL) 128 <145 mg/dL LAB CHEMISTRY METHOD 07/30/2024 12:10 PM EST [facility] Chol/HDL Ratio 2.5 0.0 - 4.4 LAB CHEMISTRY METHOD 07/30/2024 12:10 PM EST [facility] Blood Venous blood specimen / Unknown Venipuncture / Unknown 07/30/2024 8:59 AM EST 07/30/2024 11:17 AM EST us Tere Ayala MD LAB BLOOD ORDERABLES Final Re sult [facility] [address] [place] [address], [place] [phone] * Pap smear (05/29/2024 12:00 AM EST) Interpretation Negative for intraepithelial lesion or malignancy 06/03/2024 11:47 AM EST [facility] Specimen Adequacy Satisfactory for evaluation 06/03/2024 11:47 AM EST [facility] Pap Methodology Liquid Based Pap Test 06/03/2024 11:47 AM EST [facility] Disclaimer The Pap test is a screening test which carries an inherent false negative rate. These test results should be correlated with the patient's clinical findings and history. This Pap test was processed using an automated screening system. Technical cytopathology services provided by [facility], at [address] [place] [address] (CLIA # [id number]/Matheus Mays MD, Remote Operations Producer.) 06/03/2024 11:[address] [facility] Console Pap Interpretation Reported 06/03/2024 11:[address] [facility] Brushing/Spatula Vaginal structure / Unknown 05/29/2024 05/30/2024 7:51 AM EST us Nitish Velasco MD LAB CYTOLOGY ORDERABLES Final Result [facility] [address] [place] [address], * LUIS ENRIQUE SCREENING DIGITAL (02/28/2024 9:56 AM EDT) Anatomical Region Laterality Modality Mammography 02/28/2024 7:44 AM EDT Narrative 02/28/2024 9:56 AM EDT [facility] Diagnostic Imaging Department [address] [place] [address] Patient: NAYELI VELASQUEZ D.O.B./Age/Sex: 1960 - 64 - F Unit#: [id number] Location/Status: SPDIMAM/REG CLI Mnemonic/Ordering Site: [facility] Ordering Physician: TERE AYALA MD [facility] Screening Digital - 02/28/24 - 0755 Report Status:Signed EXAM: [facility] Screening Digital EXAM DATE AND TIME: 02/28/2024 7:56 AM HISTORY: Screening. COMPARISON: 03/29/22, 01/04/21, 01/01/21, 06/28/19, 02/14/16 TECHNIQUE: Bilateral digital breast tomosynthesis was performed in the CC and MLO projections. Computer aided detection with Vigme 3D 3.1 was employed. TISSUE DENSITY: b. [...] Signed by: WENDY ELLIS MD Dic Date/Time: 02/28/2456 Sign date/Time: 02/28/2456 Procedure Note Wendy Ellis MD - 04/30/2024 [facility] Diagnostic Imaging Department [address] [place] [phone] Patient: NAYELI VELASQUEZ /Age/Sex: 1960 - 64 - F Unit#: [id number] Location/Status: SPDIMAM/REG CLI Mnemonic/Ordering Site: [facility] Ordering Physician: TERE AYALA MD [facility] Screening Digital - 02/28/24 - 0755 Report Status:Signed EXAM: [facility] Screening Digital EXAM DATE AND TIME: 02/28/2024 7:56 AM HISTORY: Screening. COMPARISON: 03/29/22, 01/04/21, 01/01/21, 06/28/19, 02/14/16 TECHNIQUE: Bilateral digital breast tomosynthesis was performed in the CCand MLO projections. Computer aided detection with Vigme 3D 3.1was employed. TISSUE DENSITY: b. There [...] Most Recently Relevant to Health Maintenance Insurance [facility] PL[facility] Care Teams Instrument Lens Generator Relationship Specialty Start Date End Date Tere Ayala MD [address] PCP - General Internal Medicine 07/14/20
[2025-03-18 13:36] LABS: Hemoglobin A1C 147.5607 umol/L; Total Hemoglobin (HGBA1C) 3446.4533 umol/L
[2025-03-18 13:47] LABS: Alanine Aminotransferase 23 U/L (0-31); Albumin Level 4.5 g/dL (3.5-5.0); Alkaline Phosphatase 90 U/L (39-117); Anion Gap 12 (12-20); Aspartate Amino Transferase 33 U/L (5-31); Blood Urea Nitrogen 10 mg/dL (9-16); Calcium 9.6 mg/dL (8.4-10.2); Carbon Dioxide 28 mmol/L (22-29); Chloride 105 mmol/L (96-108); Cholesterol 181 mg/dL (<200); Estimated Glomerular Filt Rate > 60; HDL Cholesterol 70 mg/dL (>40); Potassium 4.3 mmol/L (3.3-5.1); Sodium 141 mmol/L (135-145); Total Protein 7.7 g/dL (6.5-8.0); Triglycerides 97 mg/dL (<150)
[2025-03-18 13:54] LABS: Thyroid Stimulating Hormone 0.37 uIU/mL (0.32-4.0)
== END 2025-03-18 10:30 | disposition home or self-care (01) ==
LOC: HO.10HDL 10:29
PROVIDERS: Visit Provider Internal Medicine
DX: E03.9 Hypothyroidism, unspecified (principal); E78.00 Pure hypercholesterolemia, unspecified; R73.01 Impaired fasting glucose; R74.01 Elevation of levels of liver transaminase levels
CPT/HCPCS: 36415; 80053; 80061; 83036; 84443

== ENCOUNTER 2025-03-24 09:57 | Outpatient (REF) | payer OTHER, SELFPAY ==
--- OUTSIDE RECORDS SUMMARY | 2024-05-12 10:50 | XMS_ITS ---
Author Organization [facility] Address [address] [place] [address] Care Team Providers Care Personal Loan Specialist Name Role Phone Imeldashelli Tere Primary Care Provider Unavailab Chris Napoles Unavailable [phone] REASON FOR VISIT 1 month f/u Problems Problem Type SNOMED Code ICD Code Onset Dates Problem Status W/U Status Risk Notes Problem Gastro-esophagea l reflux disease without esophagitis (061178499) Gastro-esophage al reflux disease without esophagitis (K21.9) Active confirmed Problem Chronic gastritis (4960203) Chronic gastritis (K29.50) Active confirmed Encounters Encounter Location Date Provider Diagnosis [facility] Outpatient [address] [place], [place] [phone] 05/12/2024 Chris Benoit Gastro-esophageal reflux disease without [...] Notes * BASHIR MOEEDOB:1959 (65 yo F)Acc No.[id number]:05/12/2024 EGD/MAC Patient: Swapnil RUSSELLBASHIR Provider: Charbel Benoit MD :1960 A ge:64 Y S ex:Female Date:05/12/2024 Address:[address] [place], [place] [phone] Pcp:Tere Jones Subjective: * Chief Complaints: * [...] Date: Generated for Leslee cabrera/Irineo/Joryitting on: 0 03/24/2025 11:40 AM EDT
--- NOTE | ~2025-03-24 | US_ITS ---
CLINICAL HISTORY: N39.0 - Urinary tract infection, site not specified US Renal Comparison: US/SR - US ABDOMEN - 05/25/22 08:00 EST Findings: Right kidney normal size and echotexture, 9.2 x 3.8 x 3.5 cm. Mild pelviectasis. Left kidney normal size and echotexture, 9.4 x 4.8 x 3.9 cm. Mild pelviectasis. Normal color Doppler. Urinary bladder is unremarkable. Prevoid volume 215 mL. Postvoid volume 8.5 mL. Bilateral ureteral jets are visualized. IMPRESSION: 1. Mild pelviectasis bilaterally. 2. Left kidney lower pole 4 mm stone. 3. Bilateral ureteral jets are visualized. 4. No significant postvoid residual volume of the urinary bladder. This document has been electronically signed by: Hubert Kat MD on 03/24/2025 19:35:50
--- OUTSIDE RECORDS SUMMARY | 2025-03-24 11:40 | XMS_ITS | Patient Health Record ---
Author Organization [facility] Address [address] [place] [address] Care Team Providers Care Lead Engineer Name Role Phone Robert Tere Primary Care Provider UnavailChris Amin [phone] Allergies No Known Allergies Results Component Value Reference Range Notes Pathology Reviewed date:05/19/2024 06:55:01 PM Interpretation: Performing Lab:[facility], [address] [place] [address] Notes/Report: Reason For Referral No Information Medications Medication SIG (Take, Route, Frequency, Duration) Notes Start Date End Date Status Metamucil 0.36 GM 2 with at least 8 ounces of water Orally Once or Twice a day for constipation for 30 days 04/16/2024 Active Levothyroxine Sodium 75 MCG Oral for 90 Active Pantoprazole Sodium 40 MG TAKE 1 TABLET BY MOUTH EVERY DAY FOR 30 DAYS for 90 Active Omeprazole 40 MG TAKE 1 CAPSULE BY [facility] TWICE A DAY Orally Twice a day Not-Taking Pravastatin Sodium 80 MG Oral for 90 [...] Status Risk Notes Problem Colon cancer screening (774851927) Colon cancer screening (Z12.11) Active confirmed Problem Gastro-esophageal reflux disease without esophagitis (078557447) Gastro-esophageal reflux disease without esophagitis (K21.9) Active confirmed Problem Constipation (41180338) Constipation (K59.00) Active confirmed Problem Dysphagia (83702146) Dysphagia (R13.10) Active confirmed Problem 270556704 Gastroesophageal reflux disease without esophagitis (K21.9) Active confirmed Problem Hiatal hernia (01599846) Hiatal hernia (K44.9) Active confirmed Problem 66718681 Constipation, unspecified constipation type (K59.00) Active confirmed Problem Gastritis (8454858) Gastritis (K29.70) Active c onfirmed Problem Gastroesophageal reflux disease (720268520) GERD (gastroesophageal reflux disease) (K21.9) Active confirmed Problem Chronic gastritis (8549854) Chronic gastritis (K29.50) Active confirmed Problem Irritable bowel syndrome (30333947) Irritable bowel syndrome with both constipation and diarrhea (K58.0) Active confirmed Problem Diverticulosis of sigmoid colon (476111234) Diverticulosis of sigmoid colon (K57.30) Active confirmed Problem Generalized abdominal pain (593696310) Abdominal discomfort, generalized (R10.84) Active confirmed Problem Gastroesophageal reflux disease (750972227) Gastroesophageal reflux disease, unspecified whether esophagitis present (K21.9) Active confirmed Vital Signs Temperature 97.3 degrees Fahrenheit 04/16/2024 Blood pressure diastolic 11 mm Hg 10/21/2024 Height 62 in 10/21/2024 Blood pressure systolic 111 mm Hg 10/21/2024 Weight 134 lbs 10/21/2024 BMI 24.51 kg/m2 10/21/2024 Encounters Encounter Location Date Provider Diagnosis [facility] Outpatient [address] [place], [place] [id number] 05/12/2024 Chris Benoit Gastro-esophageal reflux disease without esophagitis K21.9 ; Chronic gastritis K29.50 and Hiatal hernia K44.9 [facility] [address] [place] [phone] 04/16/2024 Chris Benoit GERD (gastroesophage al reflux disease) K21.9 ; Hiatal hernia K44.9 and Constipation, unspecified constipation type K59.00 [facility] [address] [place] [phone] 10/21/2024 Chris Benoit GERD (gastroesophage al reflux disease) K21.9 ; Hiatal hernia K44.9 ; Colon cancer screening Z12.11 and Constipation K59.00 [facility] [address] [place] [phone] 04/16/2024 Chris Benoit [facility] [address] [place] [phone] 04/16/2024 Chris Benoit [facility] [address] [place] [address] [phone] 04/21/2024 Chris Benoit [facility] [address] [phone] 05/19/2024 Chris Benoit Assessments Encounter Date Diagnosis (ICD Code) Assessment Notes Treatment Notes Treatment Clinical Notes Section Notes 05/12/2024 Gastro-esophage al reflux disease without esophagitis (ICD-10 - K21.9) [...] you advised of her progress. 04/16/2024 GERD (gastroesophage al reflux disease) (ICD-10 - K21.9) Overall, Nayeli [...] to keep you advised of her progress. 10/21/2024 Hiatal hernia (ICD-10 - K44.9) Follow up with Dr. Sebastian for the previous hiatal hernia surgery Overall, Nayeli appears well and seems to have had a good clinical response to her recent laparoscopic hiatal hernia surgery. She is not having any significant upper GI complaints at the present time which is a big improvement compared to her preoperative status in regard to the reflux symptoms. I did advise her that she could continue to use pantoprazole as needed rather than every day. I did advise her to be sure to follow-up with Dr. Sebastian and have her diet advanced as he sees fit. I do not think she will need any further upper endoscopies going forward. In regard to her constipation I did advise her to keep up with the MiraLAX and/or prune juice as needed. I did advise her to use those daily if that works for her. We did review her need for a follow-up screening colonoscopy in 2031. If things otherwise remain well she will see me on a as needed basis. Nayeli was comfortable with this plan. Thank you again for allowing me to have participated in Nayeli's care. Please do not hesitate to contact me if I can be of any further assistance in the future.. 10/21/2024 GERD (gastroesophage al reflux disease) (ICD-10 - K21.9) Use Pantoprazole as needed for any reflux symptoms Overall, Nayeli appears well and seems to have had a good clinical response to her recent laparoscopic hiatal hernia surgery. She is not having any significant upper GI complaints at the present time which is a big improvement compared to her preoperative status in regard to the reflux symptoms. I did advise her that she could continue to use pantoprazole as needed rather than every day. I did advise her to be sure to follow-up with Dr. Sebastian and have her diet advanced as he sees fit. I do not think she will need any further upper endoscopies going forward. In regard to her constipation I did advise her to keep up with the MiraLAX and/or prune juice as needed. I did advise her to use those daily if that works for her. We did review her need for a follow-up screening colonoscopy in 2031. If things otherwise remain well she will see me on a as needed basis. Nayeli was comfortable with this plan. Thank you again for allowing me to have participated in Nayeli's care. Please do not hesitate to contact me if I can be of any further assistance in the future.. 05/12/2024 Hiatal hernia (ICD-10 - K44.9) 04/16/2024 [...] to keep you advised of her progress. 10/21/2024 Colon cancer screening (ICD-10 - Z12.11) Repeat colonoscopy in 2031 Overall, Nayeli appears well and seems to have had a good clinical response to her recent laparoscopic hiatal hernia surgery. She is not having any significant upper GI complaints at the present time which is a big improvement compared to her preoperative status in regard to the reflux symptoms. I did advise her that she could continue to use pantoprazole as needed rather than every day. I did advise her to be sure to follow-up with Dr. Sebastian and have her diet advanced as he sees fit. I do not think she will need any further upper endoscopies going forward. In regard to her constipation I did advise her to keep up with the MiraLAX and/or prune juice as needed. I did advise her to use those daily if that works for her. We did review her need for a follow-up screening colonoscopy in 2031. If things otherwise remain well she will see me on a as needed basis. Nayeli was comfortable with this plan. Thank you again for allowing me to have participated in Nayeli's care. Please do not hesitate to contact me if I can be of any further assistance in the future.. 10/21/2024 Constipation (ICD-10 - K59.00) Use Miralax and prune juice as needed to prevent the constipation Overall, Nayeli appears well and seems to have had a good clinical response to her recent laparoscopic hiatal hernia surgery. She is not having any significant upper GI complaints at the present time which is a big improvement compared to her preoperative status in regard to the reflux symptoms. I did advise her that she could continue to use pantoprazole as needed rather than every day. I did advise her to be sure to follow-up with Dr. Sebastian and have her diet advanced as he sees fit. I do not think she will need any further upper endoscopies going forward. In regard to her constipation I did advise her to keep up with the MiraLAX and/or prune juice as needed. I did advise her to use those daily if that works for her. We did review her need for a follow-up screening colonoscopy in 2031. If things otherwise remain well she will see me on a as needed basis. Nayeli was comfortable with this plan. Thank you again for allowing me to have participated in Nayeli's care. Please do not hesitate to contact me if I can be of any further assistance in the future.. Plan Of Treatment Pending Test Test Name Order Date Esophageal Motility study 04/16/2024 XR BARIUM SWALLOW-ESOPHAGUS 04/18/2022 US ABD 04/18/2022 Future Test Test Name Order Date UPPER GI ENDOSCOPY BALLOOON DILATION OF ESOPH 04/18/2022 COLONOSCOPY 04/18/2022 UPPER GI ENDOSCOPY 04/16/2024 Insurance Providers Payer Name Payer Address Payer Phone Subscriber Number Group Number Insured Name Patient Relationship to Insured Coverage Start Date Coverage End Date [facility] [address] [place] [address] [phone] [id number] NAYELI MOE Self - patient is the insured [place] [address] [place] [address] [id number] NAYELI MOE Self - patient is the insured Medical [...] hernia but is described as otherwise unremarkable.. Upper endoscopy in April 16 revealed a moderate-sized hiatal hernia with changes of some mild reflux and gastritis. Biopsies were negative for Moctezuma's esophagus and H. pylori, respectively. She underwent the below hiatal hernia surgery in September 2024. Kidney stone being followed by her PCP and she advises me that she will be seeing a urologist as well as of the 10/21/24 OV with me. Surgical History Surgery Date(Month/Year) Hiatal hernia repair with Dr Natividad Sebastian at [facility]. This was complicated by an intraoperative pneumothorax but she otherwise did well and had improvement in her symptoms of reflux. 09/29/2024 Scoliosis - ana m in back 1978
== END 2025-03-24 09:58 | disposition home or self-care (01) ==
LOC: HO.US 09:57
PROVIDERS: PCP Internal Medicine; Visit Provider Nurse Practitioner Family
DX: N39.0 Urinary tract infection, site not specified (principal); R30.0 Dysuria
CPT/HCPCS: 76770

== ENCOUNTER → 2025-03-24 09:59 | Outpatient (BNV) | payer OTHER, SELFPAY | PROVIDERS: PCP Internal Medicine; Visit Provider Student in an Organized Health Care Education/Training Program | DX: R93.41 Abnormal radiologic findings on diagnostic imaging of renal pelvis, ureter, or bladder (principal); N20.0 Calculus of kidney | CPT/HCPCS: 76770 ==

== ENCOUNTER 2025-03-31 08:21 | Outpatient (AMB) | payer OTHER, SELFPAY ==
--- OUTSIDE RECORDS SUMMARY | 2024-05-12 10:50 | XMS_ITS ---
Author Organization [facility] Address [address] [place] [address] Care Team Providers Care Tool Checker Name Role Phone Imedlashelli Tere Primary Care Provider Unavailab Chris Napoles Unavailable [phone] REASON FOR VISIT 1 month f/u Problems Problem Type SNOMED Code ICD Code Onset Dates Problem Status W/U Status Risk Notes Problem Gastro-esophagea l reflux disease without esophagitis (120639195) Gastro-esophage al reflux disease without esophagitis (K21.9) Active confirmed Problem Chronic gastritis (5131929) Chronic gastritis (K29.50) Active confirmed Encounters Encounter Location Date Provider Diagnosis [facility] Out[place] [address] [place], [place] [phone] 05/12/2024 Chris Benoit Gastro-esophageal reflux disease without [...] Notes * BASHIR MOEEDOB:1959 (65 yo F)Acc No.[id number]:05/12/2024 EGD/MAC Patient: Swapnil RUSSELLBASHIR Provider: Charbel Benoit MD :1960 A ge:64 Y S ex:Female Date:05/12/2024 Address:[address] [place], [place] [phone] Pcp:Tere Jones Subjective: * Chief Complaints: * [...] Date: Generated for Leslee cabrera/Irineo/Joryitting on: 0 03/31/2025 09:45 AM EDT
--- NOTE | 2025-03-31 08:22 | A.OFFVIS_ITS ---
Intake Visit Reasons: /US Intake Note: Patient is present for / Urology Medication:NONE Antibiotic Allergy:NONE Blood Thinner:NONE Truck Rental Service Attendant Required: No Allergies No Known Allergies Allergy (Verified 03/31/25 08:59) Medication List - Last Reconciled 03/31/25 by BHUMI Castillo estradiol 0.01%(0.1mg/gram) (Estrace) 1 g vaginal 3XW 90 days multivitamin with folic acid 400 mcg (Daily-Bud (with folic acid)) 1 tab PO DAILY omeprazole 1 cap PO DAILY pravastatin 1 tab PO DAILY HPI Comments Details: Nayeli is a very pleasant 65-year-old female patient of Dr. Jones. She has a past medical history of hyperlipidemia, GERD, irritable bowel syndrome, hiatal hernia status post repair 09/2024, and hypothyroidism. She is being followed up on today via video telehealth for her recurrent urinary tract infections and lower urinary tract symptoms. In discussion with the patient today she continues to report intermittent episodes of dysuria as well as foul- smelling urine. We did discuss obtaining urinalysis for further assessment evaluation given lower urinary tract symptoms. Recent retroperitoneal ultrasound results reviewed with the patient today. 04/09 bilateral kidneys are normal in size and echotexture. Mild pelviectasis bilaterally. Left kidney with 4 mm nonobstructing lower pole calculus. No significant postvoid residual of the urinary bladder. She reports she had only been utilizing Estrace cream in active infection. We did discuss specific instructions and use for recurrent urinary tract infections. She does report issues with constipation/IBS. We did discuss correlation of bowel issues and recurrent urinary tract infections. We discussed at length potential causes of lower urinary tract symptoms, nephrolithiasis, and urinary tract infections. We did discussed further treatment options of these urological conditions and risks and benefits of these treatment options. She denies urinary urgency, urinary frequency, incontinence, nocturia, hematuria, changes to urinary stream, flank pain, fever, and or chills. She is happy with her current voiding parameters. Urine cultures are as follows: 01/07 E coli 11/07 no growth All questions were answered. She otherwise offers no other issues or concerns at this time. [facility] Medical History HLD (hyperlipidemia) Hypothyroid IBS (irritable bowel syndrome) Hiatal hernia GERD (gastroesophageal reflux disease) Surgical History History of back surgery History of esophagogastroduodenoscopy (EGD) H/O colonoscopy Social History (Updated 05/08/24 @ 14:44 by Traci Lopez RN) Do you presently have visiting nurse or other home services: No Patient Tobacco Use Status: Former Tobacco user Review of Systems Const All systems reviewed & are unremarkable except as noted in HPI and below Physical Exam Const General: cooperative, healthy appearing, comfortable, no acute distress, well developed, alert and awake Orientation/consciousness: patient oriented x3 Resp Effort & Inspection: normal respiratory effort and able to speak in complete sentences Neuro General: patient oriented x3 Psych Appearance: grossly normal and well kempt Speech and movement: Clear speech present Affect: normal affect Attitude: cooperative Thought process: Normal thought process present Thought content: Normal thought content present Insight: Fair insight present (Psych) Judgement: Fair judgement present (Psych) Telehealth Telehealth Telehealth Platform: [employer] Location of provider rendering services: practice address Location of patient: address on file Patient Identification confirmed using: Name, : Yes Telehealth method: video Patient verbally consented to treatment: Yes Patient verbally consented to billing insurance company: Yes Patient informed of any privacy concerns related to visit: Yes Minutes spent on Phone/Video with Pt.: 20 Results Reviewed Results Reviewed: Date of Service: 03/24/25 Procedure(s): US retroperitoneal comp Findings: Right kidney normal size and echotexture, 9.2 x 3.8 x 3.5 cm. Mild pelviectasis. Left kidney normal size and echotexture, 9.4 x 4.8 x 3.9 cm. Mild pelviectasis. Normal color Doppler. Urinary bladder is unremarkable. Prevoid volume 215 mL. Postvoid volume 8.5 mL. Bilateral ureteral jets are visualized. IMPRESSION: 1. Mild pelviectasis bilaterally. 2. Left kidney lower pole 4 mm stone. 3. Bilateral ureteral jets are visualized. 4. No significant postvoid residual volume of the urinary bladder. Assessment & Plan Assessment & Plan (1) Dysuria: Code(s): R30.0 - Dysuria Category: Medical (2) Recurrent urinary tract infection: Code(s): N39.0 - Urinary tract infection, site not specified Category: Medical (3) Nephrolithiasis: Code(s): N20.0 - Calculus of kidney Category: Medical Plan Discussed obtaining urinalysis for further assessment evaluation as well as urine cytology; will await results for potential treatment Recent retroperitoneal ultrasound results reviewed with the patient today. Continue Estrace cream as discussed and prescribed; refill provided. We discussed at length potential causes of nephrolithiasis, lower urinary tract symptoms, and urinary tract infections; we did discussed further treatment o ptions of these urological conditions and risks and benefits of these treatment options. All questions were answered. Discussed UTI prevention with D mannose supplement, vitamin-C, increasing fluid intake, behavioral therapy with timed voiding, perineal hygiene and postcoital voiding, and management of constipation with stool softeners and increased fiber intake. Follow-up in 1-3 months with [facility]; or sooner with any issues, concerns, and or questions. Orders: Orders UA CC w/rflx Micro + Cult Today R30.0 - Dysuria Urine Cytology Today N39.0 - Urinary tract infection, site not specified Medications: Refilled estradiol 0.01%(0.1mg/gram) (Estrace) Apply a pea-sized amount to the urethra daily x1 month and then 3 times per week thereafter 1 g vaginal 3XW 42.5 grams 3RF 90 days Coding Level of Care Code Tele Est Pt Level 3 (67517) Diagnoses Dysuria R30.0 Recurrent urinary tract infection N39.0 Nephrolithiasis N20.0
--- OUTSIDE RECORDS SUMMARY | 2025-03-31 09:45 | XMS_ITS | Encounter Summary ---
Author Organization [facility] Address [address] [place] [address] Care Team Providers Care House Nurse Name Role Phone Tere Jones MD Primary Care Provider [phone] Encounter Details Date Type Department Care Team ([facility] st Contact Info) Description 05/29/2024 Lab Requisition [facility] - Main Lab [address] [place] [phone] Nitish Velasco MD 299 [facility] [address] [place] [phone] Acute vaginitis Social History Tobacco Use Types [...] Negative Negative 05/30/2024 11:09 AM EST [facility] Gardnerella vaginalis Negative Negative 05/30/2024 11:09 AM EST [facility] Kelin Species Negative Negative 11:09 AM EST [facility] Swab Vaginal structure / Unknown 05/29/2024 05/29/2024 6:07 PM EST us Nitish Velasco MD LAB MICROBIOLOGY - GENERAL ORD ERABLES Final Result [facility] [address] [place] [address], documented in this encounter Visit Diagnoses Diagnosis Acute vaginitis Unspecified vaginitis and vulvovaginitis documented in this encounter Care Teams House Nurse Relationship Specialty Start Date End Date Tere Jones MD [address] [facility] [address] [place], [place] PCP - General Internal Medicine 07/14/20 documented as of this encounter
--- OUTSIDE RECORDS SUMMARY | 2025-03-31 09:45 | XMS_ITS | Patient Health Record ---
Author Organization [facility] Address [address] [place] [address] Care Team Providers Care Disk Operator Name Role Phone Kasia Jonesnima Primary Care Provider UnavailChris Amin [phone] Allergies No Known Allergies Results Component Value Reference Range Notes Pathology Reviewed date:05/19/2024 06:55:01 PM Interpretation: Performing Lab:[facility], [address] [place] [address] Notes/Report: Reason For Referral No Information Medications [...] Omeprazole 40 MG TAKE 1 CAPSULE BY [facility] TWICE A DAY Orally Twice a day [...] Status Risk Notes Problem Colon cancer screening (537604622) Colon cancer screening (Z12.11) Active confirmed Problem Gastro-esophageal reflux disease without esophagitis (029604513) Gastro-esophageal reflux disease without esophagitis (K21.9) Active confirmed Problem Constipation (99699191) Constipation (K59.00) Active confirmed Problem Dysphagia (91203803) Dysphagia (R13.10) Active confirmed Problem 927693853 Gastroesophageal reflux disease without esophagitis (K21.9) Active confirmed Problem Hiatal hernia (06780566) Hiatal hernia (K44.9) Active confirmed Problem 63992953 Constipation, unspecified constipation type (K59.00) Active confirmed Problem Gastritis (2628330) Gastritis (K29.70) Active c onfirmed Problem Gastroesophageal reflux disease (173831139) GERD (gastroesophageal reflux disease) (K21.9) Active confirmed Problem Chronic gastritis (2755647) Chronic gastritis (K29.50) Active confirmed Problem Irritable bowel syndrome (24848163) Irritable bowel syndrome with both constipation and diarrhea (K58.0) Active confirmed Problem Diverticulosis of sigmoid colon (279387678) Diverticulosis of sigmoid colon (K57.30) Active confirmed Problem Generalized abdominal pain (904523313) Abdominal discomfort, generalized (R10.84) Active confirmed Problem Gastroesophageal reflux disease (619407552) Gastroesophageal reflux disease, unspecified whether esophagitis present (K21.9) Active confirmed Vital Signs Temperature 97.3 degrees Fahrenheit 04/16/2024 Blood pressure diastolic 11 mm Hg 10/21/2024 Height 62 in 10/21/2024 Blood pressure systolic 111 mm Hg 10/21/2024 Weight 134 lbs 10/21/2024 BMI 24.51 kg/m2 10/21/2024 Encounters Encounter Location Date Provider Diagnosis [facility] [address] [place], [place] [phone] 05/12/2024 Chris Benoit Gastro-esophageal reflux disease without esophagitis K21.9 ; Chronic gastritis K29.50 and Hiatal hernia K44.9 [facility] [address] [place] [phone] 04/16/2024 Chris Benoit GERD (gastroesophage al reflux disease) K21.9 ; Hiatal hernia K44.9 and Constipation, unspecified constipation type K59.00 [facility] [address] [place] [phone] 10/21/2024 Chris Benoit GERD (gastroesophage al reflux disease) K21.9 ; Hiatal hernia K44.9 ; Colon cancer screening Z12.11 and Constipation K59.00 [facility] [address] [place] [phone] 04/16/2024 Chris Benoit [facility] [address] [place] [phone] 04/16/2024 Chris Benoit [facility] [address] [place] [address] [phone] 04/21/2024 Chris Benoit [facility] [address] [phone] 05/19/2024 Chris Benoit Assessments Encounter Date Diagnosis [...] Insured Coverage Start Date Coverage End Date [facility] [address] [place] [address] [phone] [id number] NAYELI MOE Self - patient is the insured [place] [address] [place] [address] [id number] NAYELI MOE Self - patient is the insured Medical (General) History Medical History History ICD Code Denies [place],DM,CVA,Lung disease,renal dise ase GERD-hiatal hernia-EGD 2016 with [...] hernia repair with Dr Natividad Sebastian at [facility]. This was complicated by an intraoperative pneumothorax but she otherwise did well and had improvement in her symptoms of reflux. 09/29/2024 Scoliosis - ana m in back 1978
--- OUTSIDE RECORDS SUMMARY | 2025-03-31 09:45 | XMS_ITS | Clinical Summary ---
Author Organization [address] Address [address] [place] [phone] Phone Care Team Providers Care Medium Cycle Salesperson Name Role Phone Tere Ayala MD Primary Care Provider [phone] Allergies No known active allergies Social History [...] 06/14/2022 Social Influencers of Health Screening 06/14/2022 Depression Screening 07/16/2024 Falls Risk Assessment 01/27/2025 COVID-19 Vaccine ( - 2023- season) 2025 Influenza Vaccine (#1) 2025 Breast Cancer Screening [...] LAB CHEMISTRY METHOD 07/30/2024 12:10 PM EST [facility] Triglycerides 94 0 - 150 mg/dL LAB CHEMISTRY METHOD 07/30/2024 12:10 PM EST [facility] HDL 87 >=40 mg/dL LAB CHEMISTRY METHOD 07/30/2024 12:10 PM EST [facility] LDL Calculated 109(H) 0 - 100 mg/dL LAB CHEMISTRY METHOD 07/30/2024 12:10 PM [facility] VLDL Cholesterol Jose 18.8 mg/dL LAB CHEMISTRY METHOD 07/30/2024 12:10 PM EST [facility] Non HDL Chol. (LDL+VLDL) 128 <145 mg/dL LAB CHEMISTRY METHOD 07/30/2024 12:10 PM EST [facility] Chol/HDL Ratio 2.5 0.0 - 4.4 LAB CHEMISTRY METHOD 07/30/2024 12:10 PM EST [facility] Blood Venous blood specimen / Unknown Venipuncture / Unknown 07/30/2024 8:59 AM EST 07/30/2024 11:17 AM EST us Tere Ayala MD LAB BLOOD ORDERABLES Final Re sult [facility] [address] [place] [address], [place] [phone] * Pap smear (05/29/2024 12:00 AM EST) Interpretation Negative for intraepithelial lesion or malignancy 06/03/2024 11:47 AM EST [facility] Specimen Adequacy Satisfactory for evaluation 06/03/2024 11:47 AM EST [facility] Pap Methodology Liquid Based Pap Test 06/03/2024 11:47 AM EST [facility] Disclaimer The Pap test is a screening test which carries an inherent false negative rate. These test results should be correlated with the patient's clinical findings and history. This Pap test was processed using an automated screening system. Technical cytopathology services provided by [facility], at [address] [place] [address] (CLIA # [id number]/Matheus Mays MD, Overnight Cashier.) 06/03/2024 11:47 AM [facility] Console Pap Interpretation Reported 06/03/2024 11:47 AM [facility] Brushing/Spatula Vaginal structure / Unknown 05/29/2024 05/30/2024 7:51 AM EST us Nitish Velasco MD LAB CYTOLOGY ORDERABLES Final Result [facility]) [facility] [address] [place] [address], * LUIS ENRIQUE SCREENING DIGITAL (02/28/2024 9:56 AM EDT) Anatomical Region Laterality Modality Mammography 02/28/2024 7:44 AM EDT Narrative 02/28/2024 9:56 AM EDT [facility] Diagnostic Imaging Department [address] [place] [address] Patient: NAYELI VELASQUEZ D.O.B./Age/Sex: 1960 - 64 - F Unit#: [id number] Location/Status: SPDIMAM/REG CLI Mnemonic/Ordering Site: [facility] Ordering Physician: TERE AYALA MD [facility] Screening Digital - 02/28/24 - 0755 Report Status:Signed EXAM: [facility] Screening Digital EXAM DATE AND TIME: 02/28/2024 7:56 AM HISTORY: Screening. COMPARISON: 03/29/22, 01/04/21, 01/01/21, 06/28/19, 02/14/16 TECHNIQUE: Bilateral digital breast tomosynthesis was performed in the CC and MLO projections. Computer aided detection with [employer] 3D 3.1 was employed. TISSUE DENSITY: [...] Procedure Note Wendy Ellis MD - 04/30/2024 [facility] Diagnostic Imaging Department [address] [place] [id number] Patient: NAYELI VELASQUEZ /Age/Sex: 1960 - 64 - F Unit#: [id number] Location/Status: SPDIMAM/REG CLI Mnemonic/Ordering Site: [facility] Ordering Physician: TERE AYALA MD [facility] Screening Digital - 02/28/24 - 0755 Report Status:Signed EXAM: [facility] Screening Digital EXAM DATE AND TIME: 02/28/2024 7:56 AM HISTORY: Screening. COMPARISON: 03/29/22, 01/04/21, 01/01/21, 06/28/19, 02/14/16 TECHNIQUE: Bilateral digital breast tomosynthesis was performed in the CCand MLO projections. Computer aided detection with [employer] 3D 3.1was employed. TISSUE DENSITY: b. There [...] Most Recently Relevant to Health Maintenance Insurance [facility] Care Teams Medium Cycle Salesperson Relationship Specialty Start Date End Date Tere Ayala MD [address] PCP - General Internal Medicine 07/14/20
--- OUTSIDE RECORDS SUMMARY | 2025-03-31 09:45 | XMS_ITS | Encounter Summary ---
Author Organization [facility] Address [address] [place] [address] Care Team Providers Care Rug Hooker Hand Name Role Phone Tere Jones MD Primary Care Provider [phone] Encounter Details Date Type Department Care Team (Latest Contact Info) Description 05/30/2024 Lab Requisition [facility] - Main Lab [address] [place] [phone] Nitish Velasco MD [address] [phone] Encounter for gynecological examination (general) (routine) without [...] lesion or malignancy 06/03/2024 11:[address] [facility] Specimen Adequacy Satisfactory for evaluation 06/03/2024 11:47 AM EST [facility] Pap Methodology Liquid Based Pap Test 06/03/2024 11:47 AM EST [facility] Disclaimer The Pap test is a screening test which carries an inherent false negative rate. These test results should be correlated with the patient's clinical findings and history. This Pap test was processed using an automated screening system. Technical cytopathology services provided by [facility], at [address] [place] [address] (CLIA # [id number]/Matheus Mays MD, Contract Engineer.) 06/03/2024 11:47 AM [facility] Console Pap Interpretation Reported 06/03/2024 11:47 AM [facility] Brushing/Spatula Vaginal structure / Unknown 05/29/2024 05/30/2024 7:51 AM EST us Nitish Velasco MD LAB CYTOLOGY ORDERABLES Final Result Performing Organization Address City/State/[facility] Co de Phone Number [facility]) [facility] [address] [place] [address], documented in this encounter Visit Diagnoses Diagnosis Encounter for gynecological examination (general) (routine) without abnormal findings documented in this encounter Care Teams Rug Hooker Hand Relationship Specialty Start Date End Date Tere Jones MD [facility] [address] PCP - General Internal Medicine 07/14/20 documented as of this encounter
== END 2025-03-31 09:39 | disposition home or self-care (01) ==
LOC: HO.HUSH 08:21
PROVIDERS: PCP Internal Medicine; Visit Provider Nurse Practitioner Family
DX: R30.0 Dysuria (principal); N39.0 Urinary tract infection, site not specified; N20.0 Calculus of kidney
CPT/HCPCS: 99213

== ENCOUNTER 2025-04-01 08:13 | Outpatient (REF) | payer OTHER, SELFPAY ==
--- OUTSIDE RECORDS SUMMARY | 2024-05-12 10:50 | XMS_ITS ---
Author Organization [facility] Address [address] [place] [address] Care Team Providers Care Destination Imagination Coordinator Name Role Phone Imeldashelli Tere Primary Care Provider Unavailab Chris Napoles Unavailable [phone] REASON FOR VISIT 1 month f/u Problems Problem Type SNOMED Code ICD Code Onset Dates Problem Status W/U Status Risk Notes Problem Gastro-esophagea l reflux disease without esophagitis (771147830) Gastro-esophage al reflux disease without esophagitis (K21.9) Active confirmed Problem Chronic gastritis (9456743) Chronic gastritis (K29.50) Active confirmed Encounters Encounter Location Date Provider Diagnosis [facility] [place] Outpatient [address] [place], [place] [phone] 05/12/2024 Chris Benoit Gastro-esophageal reflux disease without [...] Notes * BASHIR MOEEDOB:1959 (65 yo F)Acc No.[id number]:05/12/2024 EGD/MAC Patient: Swapnil RUSSELLBASHIR Provider: Charbel Benoit MD :1960 A ge:64 Y S ex:Female Date:05/12/2024 Address:[address] [place], [place] [phone] Pcp:Tere Jones Subjective: * Chief Complaints: * 1 . 1 month f/u. * Medical History: Objective: * Vitals: Assessment: * Assessment: 1. G ady-esophageal reflux disease without esophagitis - K21.9 (Primary) 2 .?Chronic gastritis - K29.50 3 . H iatal hernia - K44.9 Plan: * Treatment: * Procedure Codes: 4 3239 UPPER GI ENDOSCOPY, BIOPSY * * The named appointment provid er may or may not be the originator of this progress note, and it is not deemed complete until electronically signed by the appointment provider. Sign off status: Pending * Provider: Charbel Benoit MD Date: Generated for Leslee cabrera/Irineo/Joryitting on: 0 04/01/2025 09:09 AM EDT
--- OUTSIDE RECORDS SUMMARY | 2025-04-01 09:09 | XMS_ITS | Encounter Summary ---
Author Organization [facility] Address [address] [place] [address] Care Team Providers Care Firer Bisque Kiln Name Role Phone Tere Jones MD Primary Care Provider [phone] Encounter Details Date Type Department Care Team (Latest Contact Info) Description 05/30/2024 Lab Requisition [facility] - Main Lab [address] [place] [phone] Nitish Velasco MD [address] [phone] Encounter for gynecological examination (general) (routine) without [...] lesion or malignancy 06/03/2024 11:47 AM EST [facility] Specimen Adequacy Satisfactory for evaluation 06/03/2024 11:47 AM EST [facility] Pap Methodology Liquid Based Pap Test 06/03/2024 11:47 AM EST [facility] Disclaimer The Pap test is a screening test which carries an inherent false negative rate. These test results should be correlated with the patient's clinical findings and history. This Pap test was processed using an automated screening system. Technical cytopathology services provided by [facility], at [address] [place] [address] (CLIA # [id number]/Matheus Mays MD, Sheet Metal Shop Foreman.) 06/03/2024 11:47 AM [facility] Console Pap Interpretation Reported 06/03/2024 11:47 AM [facility] Brushing/Spatula Vaginal structure / Unknown 05/29/2024 05/30/2024 7:51 AM EST us Nitish Velacso MD LAB CYTOLOGY ORDERABLES Final Result Performing Organization Address City/State/[facility] Co de Phone Number [facility] [address] [place] [address], documented in this encounter Visit Diagnoses Diagnosis Encounter for gynecological examination (general) (routine) without abnormal findings documented in this encounter Care Teams Firer Bisque Kiln Relationship Specialty Start Date End Date Tere Jones MD [facility] [address] PCP - General Internal Medicine 07/14/20 documented as of this encounter
--- OUTSIDE RECORDS SUMMARY | 2025-04-01 09:09 | XMS_ITS | Clinical Summary ---
Author Organization [address] Address [address] [place] [phone] Phone Care Team Providers Care Museum Guide Name Role Phone Tere Ayala MD Primary Care Provider [phone] Allergies No known active allergies Social History [...] LAB CHEMISTRY METHOD 07/30/2024 12:10 PM EST [facility] Triglycerides 94 0 - 150 mg/dL LAB CHEMISTRY METHOD 07/30/2024 12:10 PM EST [facility] HDL 87 >=40 mg/dL LAB CHEMISTRY METHOD 07/30/2024 12:10 PM EST [facility] LDL Calculated 109(H) 0 - 100 mg/dL LAB CHEMISTRY METHOD 07/30/2024 12:10 PM [facility] VLDL Cholesterol Jose 18.8 mg/dL LAB CHEMISTRY METHOD 07/30/2024 12:10 PM EST [facility] Non HDL Chol. (LDL+VLDL) 128 <145 mg/dL LAB CHEMISTRY METHOD 07/30/2024 12:10 PM EST [facility] Chol/HDL Ratio 2.5 0.0 - 4.4 LAB CHEMISTRY METHOD 07/30/2024 12:10 PM EST [facility] Blood Venous blood specimen / Unknown Venipuncture / Unknown 07/30/2024 8:59 AM EST 07/30/2024 11:17 AM EST us Tere Ayala MD LAB BLOOD ORDERABLES Final Re sult [facility] [address] [place] [address], [place] [phone] * Pap smear (05/29/2024 12:00 AM EST) Interpretation Negative for intraepithelial lesion or malignancy 06/03/2024 11:47 AM EST [facility] Specimen Adequacy Satisfactory for evaluation 06/03/2024 11:47 AM EST [facility] Pap Methodology Liquid Based Pap Test 06/03/2024 11:47 AM EST [facility] Disclaimer The Pap test is a screening test which carries an inherent false negative rate. These test results should be correlated with the patient's clinical findings and history. This Pap test was processed using an automated screening system. Technical cytopathology services provided by [facility], at [address] [place] [address] (CLIA # [id number]/Matheus Mays MD, Library Aide.) 06/03/2024 11:47 AM [facility] Console Pap Interpretation Reported 06/03/2024 11:47 AM [facility] Brushing/Spatula Vaginal structure / Unknown 05/29/2024 05/30/2024 7:51 AM EST us Nitish Velasco MD LAB CYTOLOGY ORDERABLES Final Result [facility] [address] [place] [address], * LUIS ENRIQUE SCREENING DIGITAL (02/28/2024 9:56 AM EDT) Anatomical Region Laterality Modality Mammography 02/28/2024 7:44 AM EDT Narrative 02/28/2024 9:56 AM EDT [facility] Diagnostic Imaging Department [address] [place] [address] Patient: NAYELI VELASQUEZ D.O.B./Age/Sex: 1960 - 64 - F Unit#: [id number] Location/Status: SPDIMAM/REG CLI Mnemonic/Ordering Site: [facility] Ordering Physician: TERE AYALA MD [facility] Screening Digital - 02/28/24 - 0755 Report Status:Signed EXAM: [facility] Screening Digital EXAM DATE AND TIME: 02/28/2024 7:56 AM HISTORY: Screening. COMPARISON: 03/29/22, 01/04/21, 01/01/21, 06/28/19, 02/14/16 TECHNIQUE: Bilateral digital breast tomosynthesis was performed in the CC and MLO projections. Computer aided detection with MANGO BC[employer] 3D 3.1 was employed. TISSUE DENSITY: b. [...] Procedure Note Wendy Ellis MD - 04/30/2024 [facility] Diagnostic Imaging Department [address] [place] [address] Patient: NAYELI VELASQUEZ /Age/Sex: 1960 - 64 - F Unit#: [id number] Location/Status: SPDIMAM/REG CLI Mnemonic/Ordering Site: [facility] Ordering Physician: TERE AYALA MD [facility] Screening Digital - 02/28/24 - 0755 Report Status:Signed EXAM: [facility] Screening Digital EXAM DATE AND TIME: 02/28/2024 7:56 AM HISTORY: Screening. COMPARISON: 03/29/22, 01/04/21, 01/01/21, 06/28/19, 02/14/16 TECHNIQUE: Bilateral digital breast tomosynthesis was performed in the CCand MLO projections. Computer aided detection with MANGO BCN 3D 3.1was employed. TISSUE DENSITY: b. There [...] Most Recently Relevant to Health Maintenance Insurance [facility] [employer] Care Teams Museum Guide Relationship Specialty Start Date End Date Tere Ayala MD [address] PCP - General Internal Medicine 07/14/20
--- OUTSIDE RECORDS SUMMARY | 2025-04-01 09:09 | XMS_ITS | Encounter Summary ---
Author Organization [facility] Address [address] [place] [address] Care Team Providers Care Flexible Machining System Machinist Name Role Phone Tere Jones MD Primary Care Provider [phone] Encounter Details Date Type Department Care Team ([facility] st Contact Info) Description 05/29/2024 Lab Requisition [facility] - Main Lab [address] [place] [phone] Nitish Velasco MD [address] [facility] [address] [place] [phone] Acute vaginitis Social History Tobacco Use Types [...] vaginalis Negative Negative 05/30/2024 11:09 AM EST [facility] Gardnerella vaginalis Negative Negative 05/30/2024 11:[address] [facility] Kelin Species Negative Negative 11:[address] [facility] Swab Vaginal structure / Unknown 05/29/2024 05/29/2024 6:07 PM EST us Nitish Velasco MD LAB MICROBIOLOGY - GENERAL ORD ERABLES Final Result [facility] [address] [place] [address], documented in this encounter Visit Diagnoses Diagnosis Acute vaginitis Unspecified vaginitis and vulvovaginitis documented in this encounter Care Teams Flexible Machining System Machinist Relationship Specialty Start Date End Date Tere Jones MD [address] [facility] [address] [place], [place] PCP - General Internal Medicine 07/14/20 documented as of this encounter
--- OUTSIDE RECORDS SUMMARY | 2025-04-01 09:10 | XMS_ITS | Patient Health Record ---
Author Organization [facility] Address [address] [place] [address] Care Team Providers Care Professor Of Vegetable Science Name Role Phone Kasia Jonesnima Primary Care Provider UnavailChrsi Amin [phone] Allergies No Known Allergies Results Component Value Reference Range Notes Pathology Reviewed date:05/19/2024 06:55:01 PM Interpretation: Performing Lab:[facility], [address] [place] [address] Notes/Report: Reason For Referral No Information Medications [...] Omeprazole 40 MG TAKE 1 CAPSULE BY [facility] TWICE A DAY Orally Twice a [...] Status Risk Notes Problem Colon cancer screening (873484805) Colon cancer screening (Z12.11) Active confirmed Problem Gastro-esophageal reflux disease without esophagitis (736652166) Gastro-esophageal reflux disease without esophagitis (K21.9) Active confirmed Problem Constipation (11048423) Constipation (K59.00) Active confirmed Problem Dysphagia (39136987) Dysphagia (R13.10) Active confirmed Problem 212122614 Gastroesophageal reflux disease without esophagitis (K21.9) Active confirmed Problem Hiatal hernia (95205314) Hiatal hernia (K44.9) Active confirmed Problem 24167121 Constipation, unspecified constipation type (K59.00) Active confirmed Problem Gastritis (2337477) Gastritis (K29.70) Active c onfirmed Problem Gastroesophageal reflux disease (815223238) GERD (gastroesophageal reflux disease) (K21.9) Active confirmed Problem Chronic gastritis (3494282) Chronic gastritis (K29.50) Active confirmed Problem Irritable bowel syndrome (61956065) Irritable bowel syndrome with both constipation and diarrhea (K58.0) Active confirmed Problem Diverticulosis of sigmoid colon (695399194) Diverticulosis of sigmoid colon (K57.30) Active confirmed Problem Generalized abdominal pain (768459225) Abdominal discomfort, generalized (R10.84) Active confirmed Problem Gastroesophageal reflux disease (994408512) Gastroesophageal reflux disease, unspecified whether esophagitis present (K21.9) Active confirmed Vital Signs Temperature 97.3 degrees Fahrenheit 04/16/2024 Blood pressure diastolic 11 mm Hg 10/21/2024 Height 62 in 10/21/2024 Blood pressure systolic 111 mm Hg 10/21/2024 Weight 134 lbs 10/21/2024 BMI 24.51 kg/m2 10/21/2024 Encounters Encounter Location Date Provider Diagnosis [facility] Outpatient [address] [place], [place] [id number] 05/12/2024 Chris Benoit Gastro-esophageal reflux disease without esophagitis K21.9 ; Chronic gastritis K29.50 and Hiatal hernia K44.9 [facility] [address] [place] [phone] 04/16/2024 Chris Benoit GERD (gastroesophage al reflux disease) K21.9 ; Hiatal hernia K44.9 and Constipation, unspecified constipation type K59.00 [facility] [address] [place] [phone] 10/21/2024 Chris Benoit GERD (gastroesophage al reflux disease) K21.9 ; Hiatal hernia K44.9 ; Colon cancer screening Z12.11 and Constipation K59.00 [facility] [address] [place] [phone] 04/16/2024 Chris Benoit [facility] [address] [place] [phone] 04/16/2024 Chris Benoit [facility] [address] [place] [address] [phone] 04/21/2024 Chris Benoit [facility] [address] [phone] 05/19/2024 Chris Benoti Assessments Encounter Date Diagnosis (ICD Code) Assessment [...] Insured Coverage Start Date Coverage End Date [facility] [address] [place] [address] [phone] [id number] NAYELI MOE Self - patient is the insured [place] [address] [place] [address] [id number] NAYELI MOE Self - patient is the insured Medical (General) History Medical History History ICD Code Denies [place],DM,CVA,Lung disease,renal dise ase GERD-hiatal hernia-EGD 2016 with [...] hernia repair with Dr Natividad Sebastian at [facility]. This was complicated by an intraoperative pneumothorax but she otherwise did well and had improvement in her symptoms of reflux. 09/29/2024 Scoliosis - ana m in back 1978
[2025-04-01 09:36] LABS: Appearance Urine Clear; Glucose Urine UA Negative (Negative); PH 6.5 (5.0-9.0); Specific Gravity - Urine 1.020 (1.005-1.025)
== END 2025-04-01 08:14 | disposition home or self-care (01) ==
LOC: HO.LAB 08:13
PROVIDERS: PCP Internal Medicine; Visit Provider Nurse Practitioner Family
DX: N39.0 Urinary tract infection, site not specified (principal); R30.0 Dysuria
CPT/HCPCS: 81003; 88112

== ENCOUNTER 2025-06-30 14:53 | Outpatient (AMB) | payer OTHER, SELFPAY ==
--- OUTSIDE RECORDS SUMMARY | 2024-05-12 09:50 | XMS_ITS ---
Author Organization [facility] Address [address] [place] [address] Care Team Providers Care Dentist Name Role Phone Imeldashelli Tere Primary Care Provider Unavailab Chris Napoles Unavailable [phone] REASON FOR VISIT 1 month f/u Problems Problem Type SNOMED Code ICD Code Onset Dates Problem Status W/U Status Risk Notes Problem Gastro-esophagea l reflux disease without esophagitis (878008830) Gastro-esophage al reflux disease without esophagitis (K21.9) Active confirmed Problem Chronic gastritis (9556120) Chronic gastritis (K29.50) Active confirmed Encounters Encounter Location Date Provider Diagnosis [facility] [place] Outpatient [address] [place], [place] [phone] 05/12/2024 Chris Benoit Gastro-esophageal reflux disease without esophagitis K21.9 ; Chronic gastritis K29.50 and Hiatal hernia K44.9 Assessments Encounter Date Diagnosis (ICD Code) Assessment Notes Treatment Notes Treatment Clinical Notes Section Notes 05/12/2024 Gastro-esophagea l reflux disease without esophagitis (ICD-10 - K21.9) 05/12/2024 Chronic gastritis (ICD-10 - K29.50) 05/12/2024 Hiatal hernia (ICD-10 - K44.9) Plan Of Treatment No Information Progress Notes * BASHIR MOEEDOB:1959 (65 yo F)Acc No.[id number]:05/12/2024 EGD/MAC Patient: Swapnil RUSSELLBASHIR Provider: Charbel Benoit MD :1960 A ge:64 Y S ex:Female Date:05/12/2024 Address:[address] [place], [place] [phone] Pcp:Tere Jones Subjective: * Chief Complaints: * 1 month f/u Assessment: * Assessment: 1. G ady-esophageal reflux disease without esophagitis - K21.9 (Primary) 2 .?Chronic gastritis - K29.50 3 . H iatal hernia - K44.9 Plan: * Procedure Codes: 4 3239 UPPER GI ENDOSCOPY, BIOPSY Billing Information: * Procedure Codes: 00530 UPPER GI ENDOSCOPY, BIOPSY. * The named appointment provid er may or may not be the originator of this progress note, and it is not deemed complete until electronically signed by the appointment provider. Sign off status: Pending * Provider: Charbel Benoit MD Date: Generated for Leslee cabrera/Irineo/Joryitting on: 08/31/2024 07:13 PM EST
--- NOTE | 2025-06-30 15:04 | MHC.OFFVIS ---
Intake Visit Reasons: 3m/PVR/UA Intake Note: Patient is present for 3M/UA/PVR Urology Medication:ESTRADIOL Antibiotic Allergy:NONE Blood Thinner:NONE Todays PVR:16ML'S Manager Policy Required: No Allergies No Known Allergies Allergy (Verified 06/30/25 16:13) Medication List - Last Reconciled 06/30/25 by BETTE Castillo-FARAZ multivitamin with folic acid 400 mcg (Daily-Bud (with folic acid)) 1 tab PO DAILY omeprazole 1 cap PO DAILY pravastatin 1 tab PO DAILY HPI Comments Details: Nayeli is a very pleasant 65-year-old female patient of Dr. Jones. She has a past medical history of hyperlipidemia, GERD, irritable bowel syndrome, hiatal hernia status post repair 09/2024, and hypothyroidism. She presents to the office today for follow-up of her recurrent urinary tract infections and lower urinary tract symptoms. In discussion with the patient today she reports noting over the last 2-3 weeks she has been experiencing lower abdominal discomfort as well as low-back pain. She denies any associated fever or chills. She reports having attempted to call her PCP however she is out of the office at this time and recommendations were made for ER visit and or urgent care services. In office urinalysis results reviewed with the patient today negative leukocytes negative nitrates negative microscopic hematuria. She denies having had any other episodes of dysuria and or foul-smelling urine. We did discussed potential causes of symptoms she is experiencing as well as further treatment options and risks and benefits of these treatment options. Previous workup has included a retroperitoneal ultrasound 04/09 bilateral kidneys are normal in size and echotexture. Mild pelviectasis bilaterally. Left kidney with 4 mm nonobstructing lower pole calculus. No significant postvoid residual of the urinary bladder. She reports she had only been utilizing Estrace cream in active infection. We did discuss specific instructions and use for recurrent urinary tract infections. She does discuss her longstanding history of constipation/IBS. We did discuss correlation of bowel issues and recurrent urinary tract infections. We discussed potential causes of lower urinary tract symptoms, nephrolithiasis, and urinary tract infections. We did discussed further treatment options of these urological conditions and risks and benefits of these treatment options. She denies urinary urgency, urinary frequency, incontinence, nocturia, hematuria, changes to urinary stream, flank pain, fever, and or chills. She is happy with her current voiding parameters. Urine cultures are as follows: 01/07 E coli 11/07 no growth All questions were answered. She otherwise offers no other issues or concerns at this time. [facility] Medical History HLD (hyperlipidemia) Hypothyroid IBS (irritable bowel syndrome) Hiatal hernia GERD (gastroesophageal reflux disease) Surgical History History of back surgery History of esophagogastroduodenoscopy (EGD) H/O colonoscopy Social History (Updated 05/08/24 @ 14:44 by Traci Lopez RN) Do you presently have visiting nurse or other home services: No Patient Tobacco Use Status: Former Tobacco user Review of Systems Const All systems reviewed & are unremarkable except as noted in HPI and below Physical Exam Const General: cooperative, healthy appearing, comfortable, no acute distress, well developed, alert and awake Orientation/consciousness: patient oriented x3 Limitations: no limitations HEENT Head: Yes normal to inspection, Yes normocephalic and Yes atraumatic Ears: hearing grossly normal bilaterally Eyes General: appearance normal, both eyes and all related structures Neck Neck: Yes normal visual inspection and Yes trachea midline Chest Chest palpation & inspection: normal inspection of the chest Resp Effort & Inspection: normal respiratory effort and able to speak in complete sentences Cardio Rate: regular rate GI Inspection: Yes normal to inspection General: Yes no CVA tenderness Back/Spine/Pelvis Back: no CVA tenderness Skin General skin exam: no rashes or lesions noted Neuro General: patient oriented x3 Extrem General: Yes normal to inspection Psych Appearance: grossly normal and well kempt Mental Status: mental status grossly normal Speech and movement: Clear speech present Affect: normal affect Attitude: cooperative Thought process: Normal thought process present Thought content: Normal thought content present Insight: Fair insight present (Psych) Judgement: Fair judgement present (Psych) Office Procedures Post Void Residual Post Residual Void Post Void Residual (PVR): 16 52758-[id number] Void Residual by ultrasound Results AMB Urinalysis, Automated UA Leukoctes 0 Azra/uL Last Edit by EMMANUEL Potter on 06/30/25 15:33 UA Nitrite Negative Last Edit by EMMANUEL Potter on 06/30/25 15:33 UA Urobilinogen 0.2 mg/dL Last Edit by Deric [facility] on 06/30/25 15:33 UA Protein 0 mg/dL Last Edit by Deric Angeles [facility] on 06/30/25 15:33 UA pH 6.0 Last Edit by Deric Angeles [facility] on 06/30/25 15:33 UA Blood 0 Danny/uL Last Edit by Deric Angeles [facility] on 06/30/25 15:33 UA Specific [place] 1.020 Last Edit by Deric Angeles [facility] on 06/30/25 15:33 UA Ketone Negative Last Edit by Deric Angeles [facility] on 06/30/25 15:33 UA Bilirubin 0 mg/dL Last Edit by Deric Angeles [facility] on 06/30/25 15:33 UA Glucose 0 mg/dL Last Edit by Deric Angeles [facility] on 06/30/25 15:33 Results Reviewed Results Reviewed: Laboratory Last Values Urine pH (Auto) 6.0 06/30/25 15:32 Specific [place] (Auto) 1.020 06/30/25 15:32 Urine Protein (Auto) 0 mg/dL 06/30/25 15:32 Glucose (UA)(Auto) 0 mg/dL 06/30/25 15:32 Urine Ketones (Auto) Negative 06/30/25 15:32 Urine Blood (Auto) 0 Danny/uL 06/30/25 15:32 Urine Nitrite (Auto) Negative 06/30/25 15:32 Urine Bilirubin (Auto) 0 mg/dL 06/30/25 15:32 Urine Urobilinogen (Auto) 0.2 mg/dL 06/30/25 15:32 Leukocyte Esterase (Auto) 0 Azra/uL 06/30/25 15:32 Assessment & Plan Assessment & Plan (1) Recurrent urinary tract infection: Code(s): N39.0 - Urinary tract infection, site not specified Category: Medical (2) Dysuria: Code(s): R30.0 - Dysuria Category: Medical (3) Nephrolithiasis: Code(s): N20.0 - Calculus of kidney Category: Medical Plan In office urinalysis results with the patient today; as noted above. PVR 16 mL. She denies any UTI like symptoms. She reports be happy with current voiding parameters. Continue Estrace cream as discussed and prescribed. We did discussed worsening symptoms. Will obtain abdominal ultrasound for further assessment evaluation. All questions were answered. Follow-up in 1-3 months with imaging; or sooner with any issues, concerns, and or questions. Orders: Orders AMB Urinalysis Automated Today Z13.9 - Encounter for screening, unspecified US abdomen complete Today R10.9 - Unspecified abdominal pain Patient Instructions: The patient had an opportunity to ask questions regarding the treatment plan. All questions were answered. Physical exam, labs, and imaging were discussed and reviewed in detail. As well as risks, benefits, and discussion of treatment choices. No major barriers to understanding were identified. The patient expressed understanding and agreement with the above treatment plan. The patient was made aware they should contact our office by phone for worsening of their current condition, the appearance of new symptoms, or with any questions or concerns. Compliance is encouraged with any medications and follow up testing that is ordered. It is a privilege to be allowed the opportunity to participate in? your urological care.? Again, if you have any questions or concerns If you have any questions or concerns please do not hesitate to contact me. The office is [phone]. This note is constructed using voice recognition software. While every effort has been made to ensure accuracy net application architect errors may have been included. Yours sincerely, BHUMI Castillo Coding Level of Care Code Est Pt Level 3 (53698) Add On Problem Visit Only Diagnoses Recurrent urinary tract infection N39.0 Dysuria R30.0 Nephrolithiasis N20.0 CPT Codes Post Residual Void - PVR CPT Code: 72222-Qagq Void Residual by ultrasound ([id number])
--- OUTSIDE RECORDS SUMMARY | 2025-06-30 19:14 | XMS_ITS | Clinical Summary ---
Author Organization [address] Address [address] [place] [phone] Phone Care Team Providers Care Pantry Cook Name Role Phone Tere Ayala MD Primary Care Provider [phone] Allergies No known active allergies Social History [...] on file Sexual Orientation Not on file Last Filed Vital Signs Vital Sign Reading [...] Health Maintenance Due Date Last Done Comments Colorectal Cancer Screening: Colonoscopy 1960 DTaP,Tdap,and Td Vaccines (1 - Tdap) 01/27/1979 Zoster Vaccines (1 of 2) 01/27/2010 Pneumococcal Vaccine: 50+ Years (2 of 2 - PCV) 03/14/2013 03/14/2012 Hepatitis C Screening 06/14/2022 Osteoporosis Screening (Bone Density Screening) 06/14/2022 Social Influencers of Health Screening 06/14/2022 Depression Screening 07/16/2024 Falls Risk Assessment 01/27/2025 COVID-19 Vaccine ( - 2024- season) 2025 Influenza Vaccine (#1) 2025 Breast [...] LAB CHEMISTRY METHOD 07/30/2024 12:10 PM EST [facility] Triglycerides 94 0 - 150 mg/dL LAB CHEMISTRY METHOD 07/30/2024 12:10 PM EST [facility] HDL 87 >=40 mg/dL LAB CHEMISTRY METHOD 07/30/2024 12:10 PM EST [facility] LDL Calculated 109(H) 0 - 100 mg/dL LAB CHEMISTRY METHOD 07/30/2024 12:10 PM EST [facility] VLDL Cholesterol Jose 18.8 mg/dL LAB CHEMISTRY METHOD 07/30/2024 12:10 PM EST [facility] Non HDL Chol. (LDL+VLDL) 128 <145 mg/dL LAB CHEMISTRY METHOD 07/30/2024 12:10 PM EST [facility] Chol/HDL Ratio 2.5 0.0 - 4.4 LAB CHEMISTRY METHOD 07/30/2024 12:10 PM EST [facility] Blood Venous blood specimen / Unknown Venipuncture / Unknown 07/30/2024 8:59 AM EST 07/30/2024 11:17 AM EST us Tere Ayala MD LAB BLOOD ORDERABLES Final Re sult [facility] [address] [place] [address], [place] [phone] * Pap smear (05/29/2024 12:00 AM EST) Interpretation Negative for intraepithelial lesion or malignancy 06/03/2024 11:47 AM EST [facility] at 1147 EST Specimen Adequacy Satisfactory for evaluation 06/03/2024 11:47 AM EST [facility] Pap Methodology Liquid Based Pap Test 06/03/2024 11:47 AM EST [facility] Disclaimer The Pap test is a screening test which carries an inherent false negative rate. These test results should be correlated with the patient's clinical findings and history. This Pap test was processed using an automated screening system. Technical cytopathology services provided by [facility], at [address] [place] [address] (CLIA # [id number]/Matheus Mays MD, Information Technology Data Analyst.) 06/03/2024 11:[address] [facility] Console Pap Interpretation Reported 06/03/2024 11:[address] [facility] Brushing/Spatula Vaginal structure / Unknown 05/29/2024 05/30/2024 7:51 AM EST us Nitish Velasco MD LAB CYTOLOGY ORDERABLES Final Result [facility] [address] [place] [address], * LUIS ENRIQUE SCREENING DIGITAL (02/28/2024 9:56 AM EDT) Anatomical Region Laterality Modality Mammography 02/28/2024 7:44 AM EDT Narrative 02/28/2024 9:56 AM EDT [facility] Diagnostic Imaging Department [address] [place] [address] Patient: NAYELI VELASQUEZ.O.B./Age/Sex: 1960 - 64 - F Unit#: [id number] Location/Status: SPDIMAM/REG CLI Mnemonic/Ordering Site: [facility] Ordering Physician: TERE AYALA MD [facility] Screening Digital - 02/28/24 - 0755 Report Status:Signed EXAM: [facility] Screening Digital EXAM DATE AND TIME: 02/28/2024 7:56 AM HISTORY: Screening. COMPARISON: 03/29/22, 01/04/21, 01/01/21, 06/28/19, 02/14/16 TECHNIQUE: Bilateral digital breast tomosynthesis was performed in the CC and MLO projections. Computer aided detection with Volt[employer] 3D 3.1 was employed. TISSUE DENSITY: b. [...] 02/28/24955 Sign date/Time: 02/28/24955 Procedure Note Wendy Ellsi MD - 04/30/2024 [facility] Diagnostic Imaging Department [address] [place] [address] Patient: NAYELI VELASQUEZ /Age/Sex: 1960 - 64 - F Unit#: [id number] Location/Status: SPDIMAM/REG CLI Mnemonic/Ordering Site: [facility] Ordering Physician: TERE AYALA MD [facility] Screening Digital - 02/28/24 - 0755 Report Status:Signed EXAM: [facility] Screening Digital EXAM DATE AND TIME: 02/28/2024 7:56 AM HISTORY: Screening. COMPARISON: 03/29/22, 01/04/21, 01/01/21, 06/28/19, 02/14/16 TECHNIQUE: Bilateral digital breast tomosynthesis was performed in the CCand MLO projections. Computer aided detection with [employer] 3D 3.1was employed. TISSUE DENSITY: b. There [...] Most Recently Relevant to Health Maintenance Insurance [facility] Care Teams Pantry Cook Relationship Specialty Start Date End Date Tere Ayala MD [facility] [address] PCP - General Internal Medicine 07/14/20
--- OUTSIDE RECORDS SUMMARY | 2025-06-30 19:15 | XMS_ITS | Patient Health Record ---
Author Organization [facility] Address [address] [place] [address] Care Team Providers Care Net Technical Architect Name Role Phone ImeldashelliTere Primary Care Provider UnavailChris Amin [phone] Allergies No Known Allergies Reason For Referral No Information Medications Medication SIG (Take, Route, Frequency, Duration) Notes Start Date End Date Status Metamucil 0.36 GM Capsule 2 with at least 8 ounces of water Orally Once or Twice a day for constipation; Duration: 30 days 04/16/2024 Active Levothyroxine Sodium 75 MCG Tablet Oral; Duration: 90 Active Pantoprazole Sodium 40 MG Tablet Delayed Release TAKE 1 TABLET BY MOUTH EVERY DAY FOR 30 DAYS; Duration: 90 Active Omeprazole 40 MG Capsule Delayed Release TAKE 1 CAPSULE BY MOUTH TWICE A DAY Orally Twice a day Not-Taking/MA N Pravastatin Sodium 80 MG Tablet Oral; Duration: 90 Active Immunizations Vaccine Route Administration Date Status Comme nts Influenza Unknown 04/18/2022 Refused Influenza Unknown 04/16/2024 Refused Social History Tobacco Use: Social History Observation Description Date Details (start date - stop date) Never Smoker NA - NA Social History Drugs/Alcohol: Social Info Question Answer Notes Alcohol Screen Did you have a drink containing alcohol in the past year? No Points 0 Interpretation Negative Tobacco Use: Social Info Question Answer Notes Tobacco Use/Smoking Patient is a nonsmoker Additional Details Category Social Info Options Details Miscellaneous: Marital status: single Occupation: retired Section Notes: She does not smoke or [...] Status Risk Notes Problem Colon cancer screening (036050438) Colon cancer screening (Z12.11) Active confirmed Problem Gastro-esophageal reflux disease without esophagitis (956041053) Gastro-esophageal reflux disease without esophagitis (K21.9) Active confirmed Problem Constipation (05563111) Constipation (K59.00) Active confirmed Problem Dysphagia (13925605) Dysphagia (R13.10) Active confirmed Problem Gastroesophageal reflux disease without esophagitis (973003695) Gastroesophageal reflux disease without esophagitis (K21.9) Active confirmed Problem Hiatal hernia (20183204) Hiatal hernia (K44.9) Active confirmed Problem Constipation (60188146) Constipation, unspecified constipation type (K59.00) Active confirmed Problem Gastritis (6089139) Gastritis (K29.70) Active c onfirmed Problem Gastroesophageal reflux disease (898586245) GERD (gastroesophageal reflux disease) (K21.9) Active confirmed Problem Chronic gastritis (1150085) Chronic gastritis (K29.50) Active confirmed Problem Irritable bowel syndrome (10729468) Irritable bowel syndrome with both constipation and diarrhea (K58.0) Active confirmed Problem Diverticulosis of sigmoid colon (691467786) Diverticulosis of sigmoid colon (K57.30) Active confirmed Problem Generalized abdominal pain (591834527) Abdominal discomfort, generalized (R10.84) Active confirmed Problem Gastroesophageal reflux disease (424150034) Gastroesophageal reflux disease, unspecified whether esophagitis present (K21.9) Active confirmed Vital Signs Blood pressure diastolic 11 mm Hg 10/21/2024 Height 62 in 10/21/2024 Blood pressure systolic 111 mm Hg 10/21/2024 Weight 134 lbs 10/21/2024 BMI 24.51 kg/m2 10/21/2024 Encounters Encounter Location Date Provider Diagnosis [facility] [address] [place] [address] 10/21/2024 Chris Benoit GERD (gastroesophage al reflux disease) K21.9 ; Hiatal hernia K44.9 ; Colon cancer screening Z12.11 and Constipation K59.00 Assessments Encounter Date Diagnosis (ICD Code) Assessment Notes Treatment Notes Treatment Clinical Notes Section Notes 10/21/2024 Hiatal hernia (ICD-10 - K44.9) Follow [...] further assistance in the future.. 10/21/2024 GERD (gastroesophagea l reflux disease) (ICD-10 - K21.9) Use Pantoprazole [...] any further assistance in the future.. 10/21/2024 Colon cancer screening (ICD-10 - Z12.11) [...] for allowing me to have participated in Naeyli's care. Please do not hesitate to contact [...] Insured Coverage Start Date Coverage End Date [facility] [address] [place] [address] [phone] [id number] ABHI NAYELI IBRAHIMA Self - patient is the insured [place] [address] [place] [address] [id number] TASH MOEZ IBRAHIMA Self - patient is the insured Medical (General) History Medical History History ICD Code Denies [place],DM,CVA,Lung disease,renal dise ase GERD-hiatal hernia-EGD 2016 with [...] OV with me. Surgical History Surgery Date(Month/Year) Scoliosis - ana m in back [address]atal [address] repair with Dr Natividad Sebastian at [facility]. This was complicated by an intraoperative pneumothorax but she otherwise did well and had improvement in her symptoms of reflux. 09/29/2024
--- OUTSIDE RECORDS SUMMARY | 2025-06-30 19:15 | XMS_ITS | Encounter Summary ---
Author Organization [facility] Address [address] [place] [address] Care Team Providers Care Hand Bander Name Role Phone Tere Jones MD Primary Care Provider [phone] Encounter Details Date Type Department Care Team ([facility] st Contact Info) Description 05/29/2024 Lab Requisition [facility] - Main Lab [address] [place] [phone] Nitish Velasco MD [address] [facility] [address] [place] [phone] Acute vaginitis Social History Tobacco Use Types [...] vaginalis Negative Negative 05/30/2024 11:09 AM EST [facility] Gardnerella vaginalis Negative Negative 05/30/2024 11:09 AM EST [facility] Kelin Species Negative Negative 11:09 AM EST [facility] Swab Vaginal structure / Unknown 05/29/2024 05/29/2024 6:07 PM EST us Nitish Velasco MD LAB MICROBIOLOGY - GENERAL ORD ERABLES Final Result [facility] [address] [place] [address], documented in this encounter Visit Diagnoses Diagnosis Acute vaginitis Unspecified vaginitis and vulvovaginitis documented in this encounter Care Teams Hand Bander Relationship Specialty Start Date End Date Tere Jones MD [address] [facility] [address] [place], [place] PCP - General Internal Medicine 07/14/20 documented as of this encounter
--- OUTSIDE RECORDS SUMMARY | 2025-06-30 19:15 | XMS_ITS | Encounter Summary ---
Author Organization [facility] Address [address] [place] [address] Care Team Providers Care Asset Availability Leader Name Role Phone Tere Jones MD Primary Care Provider [phone] Encounter Details Date Type Department Care Team (Latest Contact Info) Description 05/30/[address] [facility] - Main Lab [address] [place] [phone] Nitish Velasco MD [address] [phone] Encounter for gynecological examination (general) (routine) without [...] lesion or malignancy 06/03/2024 11:47 AM EST [facility] at 1147 EST Specimen Adequacy Satisfactory for evaluation 06/03/2024 11:47 AM EST [facility] Pap Methodology Liquid Based Pap Test 06/03/2024 11:47 AM EST [facility] Disclaimer The Pap test is a screening test which carries an inherent false negative rate. These test results should be correlated with the patient's clinical findings and history. This Pap test was processed using an automated screening system. Technical cytopathology services provided by [facility], at [address] [place] [address] (CLIA # [id number]/Matheus Mays MD, Trimmer Sawyer.) 06/03/2024 11:47 AM [facility] Console Pap Interpretation Reported 06/03/2024 11:47 AM [facility] Brushing/Spatula Vaginal structure / Unknown 05/29/2024 05/30/2024 7:51 AM EST us Nitish Velasco MD LAB CYTOLOGY ORDERABLES Final Result [facility] [address] [place] [address], documented in this encounter Visit Diagnoses Diagnosis Encounter for gynecological examination (general) (routine) without abnormal findings documented in this encounter Care Teams Asset Availability Leader Relationship Specialty Start Date End Date Tere Jones MD [address] PCP - General Internal Medicine 07/14/20 documented as of this encounter
== END 2025-06-30 15:56 | disposition home or self-care (01) ==
LOC: HO.HUSH 14:53
PROVIDERS: PCP Internal Medicine; Visit Provider Nurse Practitioner Family
DX: N39.0 Urinary tract infection, site not specified (principal); R30.0 Dysuria; N20.0 Calculus of kidney; Z13.9 Encounter for screening, unspecified
CPT/HCPCS: 99213; G2211

== ENCOUNTER → 2025-06-30 14:53 | Outpatient (BNVA) | payer OTHER, SELFPAY | PROVIDERS: PCP Internal Medicine; Visit Provider Nurse Practitioner Family | DX: N39.0 Urinary tract infection, site not specified (principal); N20.0 Calculus of kidney; R30.0 Dysuria; R10.30 Lower abdominal pain, unspecified | CPT/HCPCS: 51798; 81003; 99212 ==